=== PATIENT | male | born 1995 | race Caucasian/White ===

== ENCOUNTER 2018-07-23 18:21 | Emergency (ER) | payer MEDICAID, SELFPAY ==
[2018-07-23 18:27] VITALS: BP 152/81; PULSE 102; RESP 20; TEMP 36.5; O2SAT 98
--- NOTE | 2018-07-23 18:40 | NUR.NOTE ---
patient has #18 right ac, patient vomiting copious amounts of bile. MD examined patient Nursing Note:
[2018-07-23] MEDS: diphenhydrAMINE 50 MG/ML VIAL 25 MG IVP (18:50)
[2018-07-23] MEDS: Ondansetron 4 MG/2 ML VIAL IVP (18:51)
[2018-07-23] MEDS: Prochlorperazine 10 MG/2 ML VIAL IVP (18:51)
[2018-07-23 18:52] LABS: Abs Immature Grans 0.05 k/cumm (0.0-0.09); HCT 48.2 % (40.0-50.0); HGB 16.6 g/dL (13.5-17.5); Mean Corp. HGB Concentration 34.4 g/dL (32.0-36.0); Mean Corpuscular Hemoglobin 31.1 pg (27.0-33.0); Mean Corpuscular Volume 90.3 fL (80-95); Mean Platelet Volume 10.9 fL (8.0-11.0); Platelet Count 300 x1000/uL (130-400); RBC 5.34 m/cumm (4.50-6.00); RBC Distribution Width 13.3 % (11.8-14.1); White Blood Cell Count 16.48 k/cumm (4.4-10.8)
[2018-07-23] MEDS: Normal Saline 1,000 ML 1000 ML IV (18:53)
--- NOTE | 2018-07-23 18:59 | NUR.NOTE ---
patient examined by MD, patient medicated per MD order Nursing Note:
[2018-07-23 19:06] LABS: INR 1.1 (1.0-3.5); Prothrombin Time 10.4 sec (9.3-10.8)
[2018-07-23 19:09] LABS: ALT 22 U/L (12-78); AST 19 U/L (15-37); Albumin 4.6 g/dL (3.4-5.0); Alkaline Phosphatase 71 U/L (46-116); Anion Gap 15.4 mmol/L (3-11); BUN 15 mg/dL (7-18); CO2 24.6 mmol/L (21.0-32.0); CREATININE 0.88 mg/dL (0.70-1.30); Calcium 10.1 mg/dL (8.5-10.1); Chloride 101 mmol/L (98-107); Glucose 102 mg/dL (70-100); Potassium 3.7 mmol/L (3.5-5.1); Sodium 141 mmol/L (136-145); Total Protein 8.3 g/dL (6.4-8.2)
--- NOTE | 2018-07-23 19:21 | ED.GENADUL_ITS ---
Discharge Plan Disposition Patient Disposition: HOME Condition: Stable Discharge Details Chief Complaint: Headache Clinical Impression: Headache, Abnormal laboratory test Reason For Visit: severe head ache Primary Care Provider: Casey Hong ED Provider: Fina Arizmendi Home Meds and New Rx's Prescriptions: Continued bupropion HCl 150 MG tablet extended release 12 hr 150 mg PO DAILY RF: 0 hydroxyzine pamoate [Vistaril] 25 MG capsule 25 mg PO QID RF: 0 melatonin 3 MG tablet 3 mg PO HS RF: 0 Discharge Instructions Instructions: General Headache (ED) Additional Instructions: Please return immediately to the emergency department if you develop any new or worsening symptoms or if you become otherwise concerned. You did have some abnormal lab testing today as we discussed. It is extremely important that you call your primary care doctor to make an appointment to be seen in follow-up for this visit as soon as possible. Referrals: Casey Hong [Primary Care Provider] - Discharge Data Discharge Date/Time-TO BE ENTERED AT DEPARTURE: 07/23/18 20:00 Medical Decision Making Vern Romero is a 22-year-old man with history of anxiety, depression, and headaches in the past presenting to the emergency department with severe headache typical of his prior headaches, not the worst headache of his life. On exam patient is tearful, appears anxious. Nonfocal neuro exam. Per triage, patient without history of headaches, CT head and CT angio brain was ordered. After discussion with patient, Patient reporting that he has had prior head CTs and that he has had several headaches at least as severe as his headache today. Patient refusing imaging, no imaging indicated at this time. Screening labs ordered prior to full evaluation. Plan for IV Compazine, Benadryl, IV fluid hydration. Patient reporting symptoms have resolved completely after meds. Patient with leukocytosis and elevated anion gap, suspect secondary to vomiting and dehydration. Patient refuses further intervention at this time, including additional IV fluids and repeat BMP. Reports that he feels back to baseline and completely well and would like to go home. Patient believes that his headache is likely due to caffeine withdrawal, and reports that he has had many headaches in the past from caffeine withdrawal similar to this. I had a lengthy discussion with patient regarding return to emergency department precautions and importance of outpatient follow-up with his PCP. He verbalizes understanding of the plan. Medical Records Medical records reviewed: Yes I reviewed the patient's medical records. Lab Data Lab results reviewed: Yes I reviewed the patient's lab results. Laboratory Tests Range/Units 07/23/18 07/23/18 07/23/18 18:41 18:41 18:41 WBC (4.4-10.8) k/cumm 16.48 H RBC (4.50-6.00) m/cumm 5.34 Hgb (13.5-17.5) g/dL 16.6 Hct (40.0-50.0) % 48.2 MCV (80-95) fL 90.3 MCH (27.0-33.0) pg 31.1 MCHC (32.0-36.0) g/dL 34.4 RDW (11.8-14.1) % 13.3 Plt Count (130-400) x1000/uL 300 MPV (8.0-11.0) fL 10.9 Immature Gran % 0.0 Neutrophils % 70.0 Lymphocytes % 10.0 Monocytes % 9.0 Eosinophils % 1.0 Basophils % 0.0 Absolute Neutrophils (1.2-6.7) k/cumm 12.03 H Band Neutrophils % 3.0 Absolute Lymphocytes (1.2-3.4) k/cumm 2.80 Absolute Monocytes (0.11-0.7) k/cumm 1.48 H Absolute Eosinophils (0.0-0.7) k/cumm 0.16 Absolute Basophils (0.0-0.2) k/cumm 0.00 Differential Comment Manual differential Atypical Lymphocytes 7 RBC Morphology See below PT (9.3-10.8) sec 10.4 INR (1.0-3.5) 1.1 Sodium (136-145) mmol/L 141 Potassium (3.5-5.1) mmol/L 3.7 Chloride (98-107) mmol/L 101 Carbon Dioxide (21.0-32.0) mmol/L 24.6 Anion Gap (3-11) mmol/L 15.4 H BUN (7-18) mg/dL 15 Creatinine (0.70-1.30) mg/dL 0.88 Estimated GFR/1.73 m2 (mL/min/1.73m2) >= 60.00 Glucose (70-100) mg/dL 102 H Calcium (8.5-10.1) mg/dL 10.1 Total Bilirubin (0.2-1.0) mg/dL 1.0 AST (15-37) U/L 19 ALT (12-78) U/L 22 Alkaline Phosphatase (46-116) U/L 71 Total Protein (6.4-8.2) g/dL 8.3 H Albumin (3.4-5.0) g/dL 4.6 HPI General Mode of arrival: ambulatory . Date/Time Provider Initiated Documentation: 07/23/18 18:37 . Limitations to Documentation: no limitations . Information obtained by: patient, RN notes reviewed and old records reviewed . HPI Narrative: Vern Romero is a 22-year-old man with a history of anxiety, depression presenting to the emergency department with headache. Patient reports that at 4 PM he developed gradual onset headache. He went to bed, and when he woke up headache was more severe. Patient reports that his headache is causing him to feel very anxious. He reports pain is severe, located behind his eyes, and sharp in nature. Pain was not maximal at onset. Patient reports that he has had at least 5 headaches of similar location, quality, and severity in the past. He has had CT of his head here and at another hospital as well for emergent evaluation of these headaches. Patient reports that he had several episodes of vomiting since headache started. He has had vomiting with his prior similar headaches in the past. He denies any atypical or unusual symptoms/features of this headache compared to prior. Patient reports that he was previously in his usual state of health. No recent illnesses. No recent travel. Normal appetite. 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 Related Data Home Medications Medication Instructions Recorded Confirmed bupropion HCl 150 mg PO DAILY 12/07/15 10/12/16 hydroxyzine pamoate [Vistaril] 25 mg PO QID 12/07/15 10/12/16 melatonin 3 mg PO HS 10/12/16 10/12/16 Allergies Allergy/AdvReac Type Severity Reaction Status Date / Time No Known Allergies Allergy Unverified 12/07/15 09:29 General Stated Complaint: Headache LUCAS: 2 Review of Systems Review of Systems Constitutional: denies fevers Eyes: denies eye pain, denies visual changes ENT: denies facial pain, dental pain, sore throat Cardiovascular: denies chest pain Respiratory: denies SOB, cough GI: denies abdominal pain, diarrhea, reports vomiting : denies flank pain MSK: denies back pain, neck pain, arthralgias, myalgias Skin: denies rash Neuro: reports headache, denies lightheadedness, weakness, n/t PFSH Carpal tunnel syndrome Congenital pectus carinatum Depression Hearing problem Spontaneous pneumothorax Surgical History Opening of chest (07/05/14) Social History Smoking/Tobacco Use Status: Never Exam Narrative Exam Narrative: Constitutional: well and [id number], appears uncomfortable and anxious but o/w conversing normally HENT: head atraumatic, normocephalic normal inspection, mucous membranes moist Eyes: conjunctiva normal, sclera normal, pupils 3mm b/l RLA, EOMI Neck: no stridor, normal ROM, trachea midline Chest: normal inspection Resp: normal work of breathing, LCTAB Cardio: normal rate, normal rhythm, no murmur appreciated GI: abdomen soft, non-tender, non-distended Back: normal inspection, no rash Skin: warm, dry, normal color, no rash Neuro: alert, not altered, normal tone, machine quilt stuffer 2-12 intact, motor 5/5 throughout Ext: no edema Psych: anxious mood, normal affect, normal behavior Course Vital Signs Temperature 36.5 C 07/23/18 18:27 Pulse 102 H 07/23/18 18:27 Respiratory Rate 20 07/23/18 18:27 Blood Pressure 152/81 H 07/23/18 18:27 Pulse Oximetry 98 07/23/18 18:27 Temperature 36.5 C 07/23/18 18:27 Pulse 102 H 07/23/18 18:27 Respiratory Rate 20 18 18:27 Respiratory Effort 07/23/18 18:55 Blood Pressure 152/81 H 18 18:27 Blood Pressure Position Sitting 07/23/18 18:27 Pulse Oximetry 98 07/23/18 18:27 Oxygen Delivery Method Room Air 07/23/18 18:27 Oxygen Flow Rate 0 07/23/18 18:27 Lab/Test Results Lab/Test Results: Laboratory Tests Range/Units 07/23/18 07/23/18 18:41 18:41 WBC (4.4-10.8) k/cumm 16.48 H RBC (4.50-6.00) m/cumm 5.34 Hgb (13.5-17.5) g/dL 16.6 Hct (40.0-50.0) % 48.2 MCV (80-95) fL 90.3 MCH (27.0-33.0) pg 31.1 MCHC (32.0-36.0) g/dL 34.4 RDW (11.8-14.1) % 13.3 Plt Count (130-400) x1000/uL 300 MPV (8.0-11.0) fL 10.9 PT (9.3-10.8) sec 10.4 INR (1.0-3.5) 1.1
[2018-07-23 19:23] LABS: Absolute Neutrophil Count 12.03 k/cumm (1.2-6.7)
[2018-07-23 19:24] LABS: Absolute Eosinophil Count 0.16 k/cumm (0.0-0.7); Absolute Monocyte Count 1.48 k/cumm (0.11-0.7); Atypical Lymphocytes % 7
[2018-07-23 19:25] LABS: Diff Comment Manual Differential
[2018-07-23 19:33] VITALS: BP 109/52; PULSE 69; RESP 16; TEMP 36.9; O2SAT 94
== END 2018-07-23 20:00 | disposition home or self-care (01) ==
PROVIDERS: Emergency Provider Student in an Organized Health Care Education/Training Program; PCP Family Medicine
DX: R51 Headache (principal); F41.8 Other specified anxiety disorders; R11.2 Nausea with vomiting, unspecified; E87.2 Acidosis
CPT/HCPCS: 36415; 80053; 96361; 96374; 96375; 99284; 85025; 85610; J0780; J1200; J2405

== ENCOUNTER 2018-11-27 08:19 | Emergency (ER) | payer MEDICAID, SELFPAY ==
[2018-11-27 08:20] VITALS: BP 132/79; PULSE 79; RESP 18; TEMP 36.7; O2SAT 96
--- NOTE | 2018-11-27 08:37 | W.ED.GENAD ---
Discharge Plan Disposition Patient Disposition: HOME Condition: Stable Discharge Details Chief Complaint: Orthopedic Clinical Impression: Bilateral hip pain Primary Care Provider: Casey Hong ED Provider: Kade Abbasi Home Meds and New Rx's Prescriptions: No Action hydroxyzine pamoate [Vistaril] 25 MG capsule 50 mg PO QID RF: 0 Discharge Instructions Instructions: Arthritis (ED) Additional Instructions: follow up with your primary care provider within 1-2 weeks if you develop high fevers, severe worsening pain, or inability to urinate return to the emergency department you can take 1000mg tylenol and 600mg ibuprofen every 6 hours for pain as needed Stand Alone Forms: Work Release Medical Decision Making 23 yo male comes in with severeal months of bilateral hip pain, states he had xrays done in [place] and showed arthritis and has seen his pcp as well, missed an mri appointment a few weeks ago. 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 Pain is worse at the end of the day and denies systemic symptoms such as fever or weight loss so doubt cancer. No redness swelling or erythema of the joints, denies ivdu, doubt septic joint. He has full rom of the joints, no midline back pain or back pain at all, no saddle anesthesia, no weakness, doubt entities such as fx or dislocation or cauda equina. I suspect arthritis with increased pain due to working, will have him f/u withp cp and return precautions given Differential Diagnosis arthritis, djd HPI General Mode of arrival: ambulatory. Date/Time Provider Initiated Documentation: 11/27/18 08:36. Limitations to Documentation: no limitations. Information obtained by: patient. History of Present Illness 23 year old M presents to the emergency department with the chief complaint of bilateral hip pain, described as moderate, Quality is described as aching, Patient started experiencing this month(s) (3) and it has been constant. No relieving factors improve symptom(s), No exacerbating factors reported . Patient did receive the following treatments prior to arrival, none Related Data Home Medications Medication Instructions Recorded Confirmed hydroxyzine pamoate [Vistaril] 50 mg PO QID 12/07/15 11/27/18 Allergies Allergy/AdvReac Type Severity Reaction Status Date / Time No Known Allergies Allergy Unverified 11/27/18 08:24 General Stated Complaint: Orthopedic LUCAS: 4 Review of Systems Review of Systems All systems reviewed & are unremarkable except as noted in HPI and below Constitutional Denies chills, Denies fever(s) and Denies weakness Cardiovascular Denies chest pain and Denies dyspnea Respiratory Denies cough and Denies dyspnea Gastrointestinal Denies abdominal pain, Denies nausea and Denies vomiting Musculoskeletal Denies joint swelling Integumentary/Breasts Denies rash Neurologic Denies weakness [facility] Medical History Carpal tunnel syndrome Congenital pectus carinatum Depression Hearing problem Spontaneous pneumothorax Surgical History Opening of chest (07/05/14) Social History Smoking/Tobacco Use Status: Never Drug use: Daily Do you feel safe in your relationship?: Yes Exam Const General: no acute distress Orientation: alert HENMT Head: normal to inspection Ears: external ears normal General nose exam: external nose normal Mouth: moist mucous membranes Eyes General: appearance normal, both eyes and all related structures Neck Neck: normal visual inspection Resp Effort & Inspection: normal respiratory effort and able to speak in complete sentences Cardio Rate: regular rate Skin General skin exam: no rashes or lesions noted Neuro General: alert and oriented x3 Extrem General: normal to inspection Psych Mental Status: mental status grossly normal Course Vital Signs Temperature 36.7 C 11/27/18 08:20 Pulse 79 11/27/18 08:20 Respiratory Rate 18 11/27/18 08:20 Blood Pressure 132/79 11/27/18 08:20 Pulse Oximetry 96 11/27/18 08:20 Temperature 36.7 C 11/27/18 08:20 Temperature Source Skin 11/27/18 08:20 Pulse 79 11/27/18 08:20 Respiratory Rate 18 11/27/18 08:20 Blood Pressure 132/79 11/27/18 08:20 Pulse Oximetry 96 11/27/18 08:20 Oxygen Delivery Method Room Air 11/27/18 08:20 Oxygen Flow Rate 0 11/27/18 08:20 Pain Level 7 11/27/18 08:20
--- NOTE | 2018-11-27 08:47 | ED.GENADUL_ITS ---
Discharge Plan Disposition Patient Disposition: HOME Condition: Stable Discharge Details Chief Complaint: Orthopedic Clinical Impression: Bilateral hip pain Primary Care Provider: Casey Hong ED Provider: Kade Abbasi Home Meds and New Rx's Prescriptions: No Action hydroxyzine pamoate [Vistaril] 25 MG capsule 50 mg PO QID RF: 0 Discharge Instructions Instructions: Arthritis (ED) Additional Instructions: follow up with your primary care provider within 1-2 weeks if you develop high fevers, severe worsening pain, or inability to urinate return to the emergency department you can take 1000mg tylenol and 600mg ibuprofen every 6 hours for pain as needed Stand Alone Forms: Work Release Medical Decision Making 23 yo male comes in with severeal months of bilateral hip pain, states he had xrays done in [place] and showed arthritis and has seen his pcp as well, missed an mri appointment a few weeks ago. 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 Pain is worse at the end of the day and denies systemic symptoms such as fever or weight loss so doubt cancer. No redness swelling or erythema of the joints, denies ivdu, doubt septic joint. He has full rom of the joints, no midline back pain or back pain at all, no saddle anesthesia, no weakness, doubt entities such as fx or dislocation or cauda equina. I suspect arthritis with increased pain due to working, will have him f/u withp cp and return precautions given Differential Diagnosis arthritis, djd HPI General Mode of arrival: ambulatory . Date/Time Provider Initiated Documentation: 11/27/18 08:36 . Limitations to Documentation: no limitations . Information obtained by: patient . History of Present Illness 23 year old M presents to the emergency department with the chief complaint of bilateral hip pain, described as moderate, Quality is described as aching, Patient sta rted experiencing this month(s) (3) and it has been constant. No relieving factors improve symptom(s), No exacerbating factors reported . Patient did receive the following treatments prior to arrival, none Related Data Home Medications Medication Instructions Recorded Confirmed hydroxyzine pamoate [Vistaril] 50 mg PO QID 12/07/15 11/27/18 Allergies Allergy/AdvReac Type Severity Reaction Status Date / Time No Known Allergies Allergy Unverified 11/27/18 08:24 General Stated Complaint: Orthopedic LUCAS: 4 Review of Systems Review of Systems All systems reviewed & are unremarkable except as noted in HPI and below Constitutional Denies chills, Denies fever(s) and Denies weakness Cardiovascular Denies chest pain and Denies dyspnea Respiratory Denies cough and Denies dyspnea Gastrointestinal Denies abdominal pain, Denies nausea and Denies vomiting Musculoskeletal Denies joint swelling Integumentary/Breasts Denies rash Neurologic Denies weakness PFSH Medical History Carpal tunnel syndrome Congenital pectus carinatum Depression Hearing problem Spontaneous pneumothorax Surgical History Opening of chest (07/05/14) Social History Smoking/Tobacco Use Status: Never Drug use: Daily Do you feel safe in your relationship?: Yes Exam Const General: no acute distress Orientation: alert HENMT Head: normal to inspection Ears: external ears normal General nose exam: external nose normal Mouth: moist mucous membranes Eyes General: appearance normal, both eyes and all related structures Neck Neck: normal visual inspection Resp Effort & Inspection: normal respiratory effort and able to speak in complete sentences Cardio Rate: regular rate Skin General skin exam: no rashes or lesions noted Neuro General: alert and oriented x3 Extrem General: normal to inspection Psych Mental Status: mental status grossly normal Course Vital Signs Temperature 36.7 C 11/27/18 08:20 Pulse 79 11/27/18 08:20 Respiratory Rate 18 11/27/18 08:20 Blood Pressure 132/79 11/27/18 08:20 Pulse Oximetry 96 11/27/18 08:20 Temperature 36.7 C 11/27/18 08:20 Temperature Source Skin 11/27/18 08:20 Pulse 79 11/27/18 08:20 Respiratory Rate 18 11/27/18 08:20 Blood Pressure 132/79 11/27/18 08:20 Pulse Oximetry 96 11/27/18 08:20 Oxygen Delivery Method Room Air 11/27/18 08:20 Oxygen Flow Rate 0 11/27/18 08:20 Pain Level 7 11/27/18 08:20
== END 2018-11-27 08:45 | disposition home or self-care (01) ==
PROVIDERS: Emergency Provider Emergency Medicine; PCP Family Medicine
DX: M25.551 Pain in right hip (principal); M25.552 Pain in left hip
CPT/HCPCS: 99283

== ENCOUNTER 2018-12-11 19:43 | Emergency (ER) | payer MEDICAID, SELFPAY ==
[2018-12-11 19:46] VITALS: BP 113/72; PULSE 108; RESP 18; TEMP 36.4; O2SAT 96
--- NOTE | 2018-12-11 19:58 | W.ED.GENAD ---
Discharge Plan Disposition Patient Disposition: HOME Condition: Good Discharge Details Chief Complaint: Orthopedic Clinical Impression: Bilateral hip pain Primary Care Provider: Casey Hong ED Provider: Ulises Hobson [place] Meds and New Rx's Prescriptions: Continued hydroxyzine pamoate [Vistaril] 25 MG capsule 50 mg PO QID RF: 0 diclofenac sodium 75 mg Tablet,Delayed Release (Dr/Ec) 75 mg PO BID RF: 0 Discharge Instructions Additional Instructions: Start your new prescription in the morning. Follow up with PCP and orthopedics. Return to ED if there are new symptoms that occur that are worrisome like back pain, true weakness, loss of bladder or bowel control, fever, abdominal pain. Referrals: Casey Hong [Primary Care Provider] - Medical Decision Making Patient with continued/worsening pain in bilateral hips. Continues to have no back pain or abdominal pain, no neurological changes other then pain/tingling shooting down legs. Has had x-rays and has been seen/followed by PCP and orthopedics. Has new prescription to try. Asked patient what his expectations to this visit were. He said none, just doesn't want to be in pain. Explained that chronic pain must be managed by PCP and that evaluation and management of chronic problems in ED not warranted unless new changes/symptoms. This is just a gradual worsening of chronic problem being followed as outpatient. His neuro exam is normal. His distal pulses are in tact. He has no tenderness or swelling, does have pain with ROM. Offered shot of Toradol and then will have him start his new prescription in the morning. Medical Records Medical records reviewed: Yes I reviewed the patient's medical records. HPI General Mode of arrival: ambulatory. Date/Time Provider Initiated Documentation: 12/11/18 19:48. Limitations to Documentation: no limitations. Information obtained by: patient, RN notes reviewed and old records reviewed. HPI Narrative: Patient presents to ED with complaint of worsening bilateral hip pain. Has had now for months probably. Is followed by PCP and by [facility]. Was given new prescription for diclofenac to try. Has not taken yet. Comes to ED complaining of worsening pain that he can't stand. Denies new injury or changes otherwise. Has difficulty ambulating due to pain not weakness. Denies fever, chills, skin changes, back pain, abdominal pain, weakness, numbness, bladder or bowel problems. Pain now starting to shoot down his legs. Pain seems to be deep in groin bilaterally. Related Data Home Medications Medication Instructions Recorded Confirmed hydroxyzine pamoate [Vistaril] 50 mg PO QID 12/07/15 12/11/18 diclofenac sodium 75 mg PO BID 12/11/18 12/11/18 Allergies Allergy/AdvReac Type Severity Reaction Status Date / Time No Known Allergies Allergy Unverified 12/11/18 19:49 General Stated Complaint: Orthopedic LUCAS: 4 Review of Systems Constitutional Denies chills, Denies fever(s) and Denies weakness Musculoskeletal Denies back pain, Denies myalgias, Reports arthralgias, Denies joint swelling, Denies numbness and Reports tingling Integumentary/Breasts Denies erythema and Denies rash Neurologic Denies focal weakness, Denies numbness, Denies sensory deficit, Reports tingling, Denies paresthesias and Denies weakness [facility] Medical History Femoral acetabular impingement (Acute) Carpal tunnel syndrome Congenital pectus carinatum Depression Hearing problem Spontaneous pneumothorax Surgical History Opening of chest (07/05/14) Social History Smoking/Tobacco Use Status: Current every day Tobacco Type: cigarettes Alcohol Intake: current Alcohol Intake frequency: a few times a week Drug use: Daily Substance use type: does not use Do you feel safe at home: Yes Do you feel safe in your relationship?: Yes Exam Const General: cooperative, comfortable and no acute distress Orientation: alert and oriented x3 Cardio Pulses: normal peripheral pulses Back/Spine/Pelvis Thoracic/Lumbar Spine: thoracic and lumbar spine normal to inspection, thoraco-lumbar ROM normal, No paraspinal tenderness, No thoracic spinal tenderness and No lumbar spinal tenderness Pelvis: no pain with anterior-posterior compression and no pain with lateral compression Skin General skin exam: no erythema Rashes: no rashes Neuro General: alert, oriented x3, tone normal, moves all extremities and no focal motor deficits Sensory Exam: no sensory deficits noted Extrem Right lower extremity: normal to inspection and hip/thigh Details: normal to inspection and abnormal ROM Details: pain with active ROM during; no tenderness Left lower extremity: normal to inspection and hip/thigh Details: normal to inspection and abnormal ROM Details: pain with active ROM; no tenderness Course Vital Signs Temperature 97.5 F L 12/11/18 19:46 Pulse 108 H 12/11/18 19:46 Respiratory Rate 18 12/11/18 19:46 Blood Pressure 113/72 12/11/18 19:46 Pulse Oximetry 96 12/11/18 19:46 Temperature 97.5 F L 12/11/18 19:46 Temperature Source Skin 12/11/18 19:46 Pulse 108 H 12/11/18 19:46 Respiratory Rate 18 12/11/18 19:46 Respiratory Effort Non-Labored 12/11/18 19:51 Blood Pressure 113/72 12/11/18 19:46 Pulse Oximetry 96 12/11/18 19:46 Pain Level 8 12/11/18 19:46
[2018-12-11] MEDS: Ketorolac 60 MG/2 ML VIAL IM (20:13)
--- NOTE | 2018-12-11 20:20 | ED.GENADUL_ITS ---
Discharge Plan Disposition Patient Disposition: HOME Condition: Good Discharge Details Chief Complaint: Orthopedic Clinical Impression: Bilateral hip pain Primary Care Provider: Casey Hong ED Provider: Ulises Hobson [place] Meds and New Rx's Prescriptions: Continued hydroxyzine pamoate [Vistaril] 25 MG capsule 50 mg PO QID RF: 0 diclofenac sodium 75 mg Tablet,Delayed Release (Dr/Ec) 75 mg PO BID RF: 0 Discharge Instructions Additional Instructions: Start your new prescription in the morning. Follow up with PCP and orthopedics. Return to ED if there are new symptoms that occur that are worrisome like back pain, true weakness, loss of bladder or bowel control, fever, abdominal pain. Referrals: Casey Hong [Primary Care Provider] - Medical Decision Making Patient with continued/worsening pain in bilateral hips. Continues to have no back pain or abdominal pain, no neurological changes other then pain/tingling shooting down legs. Has had x-rays and has been seen/followed by PCP and orthopedics. Has new prescription to try. Asked patient what his expectations to this visit were. He said none, just doesn't want to be in pain. Explained that chronic pain must be managed by PCP and that evaluation and management of chronic problems in ED not warranted unless new changes/symptoms. This is just a gradual worsening of chronic problem being followed as outpatient. His neuro exam is normal. His distal pulses are in tact. He has no tenderness or swelling, does have pain with ROM. Offered shot of Toradol and then will have him start his new prescription in the morning. Medical Records Medical records reviewed: Yes I reviewed the patient's medical records. HPI General Mode of arrival: ambulatory . Date/Time Provider Initiated Documentation: 12/11/18 19:48 . Limitations to Documentation: no limitations . Information obtained by: patient, RN notes reviewed and old records reviewed . HPI Narrative: Patient presents to ED with complaint of worsening bilateral hip pain. Has had now for months probably. Is followed by PCP and by [facility]. Was given new prescription for diclofenac to try. Has not taken yet. Comes to ED complaining of worsening pain that he can't stand. Denies new injury or changes otherwise. Has difficulty ambulating due to pain not weakness. Denies fever, chills, skin changes, back pain, abdominal pain, weakness, numbness, bladder or bowel problems. Pain now starting to shoot down his legs. Pain seems to be deep in groin bilaterally. Related Data Home Medications Medication Instructions Recorded Confirmed hydroxyzine pamoate [Vistaril] 50 mg PO QID 12/07/15 12/11/18 diclofenac sodium 75 mg PO BID 12/11/18 12/11/18 Allergies Allergy/AdvReac Type Severity Reaction Status Date / Time No Known Allergies Allergy Unverified 12/11/18 19:49 General Stated Complaint: Orthopedic LUCAS: 4 Review of Systems Constitutional Denies chills, Denies fever(s) and Denies weakness Musculoskeletal Denies back pain, Denies myalgias, Reports arthralgias, Denies joint swelling, Denies numbness and Reports tingling Integumentary/Breasts Denies erythema and Denies rash Neurologic Denies focal weakness, Denies numbness, Denies sensory deficit, Reports tingling, Denies paresthesias and Denies weakness [facility] Medical History Femoral acetabular impingement (Acute) Carpal tunnel syndrome Congenital pectus carinatum Depression Hearing problem Spontaneous pneumothorax Surgical History Opening of chest (07/05/14) Social History Smoking/Tobacco Use Status: Current every day Tobacco Type: cigarettes Alcohol Intake: current Alcohol Intake frequency: a few times a week Drug use: Daily Substance use type: does not use Do you feel safe at home: Yes Do you feel safe in your relationship?: Yes Exam Const General: cooperative, comfortable and no acute distress Orientation: alert and oriented x3 Cardio Pulses: normal peripheral pulses Back/Spine/Pelvis Thoracic/Lumbar Spine: thoracic and lumbar spine normal to inspection, thoraco- lumbar ROM normal, No paraspinal tenderness, No thoracic spinal tenderness and No lumbar spinal tenderness Pelvis: no pain with anterior-posterior compression and no pain with lateral compression Skin General skin exam: no erythema Rashes: no rashes Neuro General: alert, oriented x3, tone normal, moves all extremities and no focal motor deficits Sensory Exam: no sensory deficits noted Extrem Right lower extremity: normal to inspection and hip/thigh Details: normal to inspection and abnormal ROM Details: pain with active ROM during; no tenderness Left lower extremity: normal to inspection and hip/thigh Details: normal to inspection and abnormal ROM Details: pain with active ROM; no tenderness Course Vital Signs Temperature 97.5 F L 12/11/18 19:46 Pulse 108 H 12/11/18 19:46 Respiratory Rate 18 12/11/18 19:46 Blood Pressure 113/72 12/11/18 19:46 Pulse Oximetry 96 12/11/18 19:46 Temperature 97.5 F L 12/11/18 19:46 Temperature Source Skin 12/11/18 19:46 Pulse 108 H 12/11/18 19:46 Respiratory Rate 18 12/11/18 19:46 Respiratory Effort Non-Labored 12/11/18 19:51 Blood Pressure 113/72 12/11/18 19:46 Pulse Oximetry 96 12/11/18 19:46 Pain Level 8 12/11/18 19:46
== END 2018-12-11 20:34 | disposition home or self-care (01) ==
PROVIDERS: Emergency Provider Emergency Medicine; PCP Family Medicine
DX: M25.551 Pain in right hip (principal); M25.552 Pain in left hip; G89.29 Other chronic pain
CPT/HCPCS: 96372; 99284; J1885

== ENCOUNTER 2019-01-01 01:17 | Outpatient (CLI) | payer MEDICAID, SELFPAY ==
--- NOTE | 2019-01-01 10:47 | DI.MRI_ITS ---
SYMPTOMS/DIAGNOSIS: FEMOROACETABULAR IMPINGEMENT, M25.859, BILATERAL CHRONIC HIP PAIN X 1-1/2 YEARS, NO KNOWN INJURY MRI OF THE PELVIS AND BOTH HIPS: Comparison is made with plain films dated July, from [facility]. T1 and fat-suppressed T2 axial, T1 and STIR coronal sequences were performed of both hips. Fat-suppressed proton density coronal and T2 sagittal sequences were performed of each hip. The marrow signal is normal. There are no hip joint effusions. No tendon abnormalities are seen. There are no gross labral defects. There is a small bump bilaterally seen at the lateral superior margin of both femoral heads. The bladder and prostate are unremarkable. No abnormality of the SI joints is seen. IMPRESSION: Small excrescences of the lateral superior margins of the femoral heads, but no abnormal signal or subchondral cysts in the femoral head or adjacent acetabulum. There are no gross cartilage or labral defects.
--- NOTE | 2019-01-01 15:24 | DI.VRAD_ITS ---
EXAM: MR Right Lower Extremity Without Contrast. Hip MR Left Lower Extremity Without Contrast. Hip EXAM DATE/TIME: 01/01/2019 10:45 AM CLINICAL HISTORY: 23 years old, male; Patient HX: Bilateral chronic hip pain x1 1/2 years, no known injury, no surgery. TECHNIQUE: Imaging protocol: MR of the Right lower extremity without intravenous contrast. Exam focused on the hip. Imaging protocol: MR of the Left lower extremity without intravenous contrast. Exam focused on the hip. COMPARISON: No relevant prior studies available. FINDINGS: The hip joints are normally aligned. The femoral head articular contours are maintained, and there is no subchondral marrow signal change to suggest avascular necrosis. There is no significant hip joint effusion. The articular cartilage of both hips appears intact. No gross tear of either acetabular labrum is identified. The bones of the remaining pelvis are normal in signal. The partially included sacroiliac joints and pubic symphysis appear patent. No gross lower lumbar abnormality is evident. The bilateral greater and lesser trochanteric tendon insertions are intact. There is very mild right and mild left hamstring tendinopathy. The visualized musculature and subcutaneous soft tissues appear unremarkable. The visualized intrapelvic structures appear unremarkable. IMPRESSION: Very mild right and mild left hamstrings tendinopathy. Dictated and Authenticated by: Kade Joseph MD. Ordering:YG Prasad MD
== END 2019-01-01 01:37 ==
PROVIDERS: PCP Family Medicine; Visit Provider Orthopaedic Surgery
DX: M25.551 Pain in right hip (principal); M25.552 Pain in left hip; M25.851 Other specified joint disorders, right hip; M25.852 Other specified joint disorders, left hip
CPT/HCPCS: 73721

== ENCOUNTER 2019-01-26 16:21 | Emergency (ER) | payer MEDICAID, SELFPAY ==
[2019-01-26 16:24] VITALS: BP 134/78; PULSE 84; RESP 14; TEMP 36.9; O2SAT 99
--- NOTE | 2019-01-26 16:45 | W.ED.GENAD ---
Discharge Plan Disposition Patient Disposition: HOME Discharge Details Chief Complaint: Orthopedic Clinical Impression: Femoral acetabular impingement Primary Care Provider: Casey Hong ED Provider: Mario Arizmendi Home Meds and New Rx's Prescriptions: Continued hydroxyzine pamoate [Vistaril] 25 MG capsule 50 mg PO QID RF: 0 diclofenac sodium 75 mg Tablet,Delayed Release (Dr/Ec) 75 mg PO BID RF: 0 Discharge Instructions Additional Instructions: Please call your automotive parts specialist to arrange timely follow-up. Please contact your primary care physician to arrange follow-up. Return to the ER for any worsening or new concerning symptoms. Referrals: Casey Hong [Primary Care Provider] - Medical Decision Making 23-year-old male with femoral acetabular impingement syndrome bilaterally, followed by orthopedics was planned for surgical intervention scheduled for March 18 here today with persistent bilateral hip pain over the past few weeks that is refractory to diclofenac. No inflammatory changes of her bilateral hips. He does have pain with external and internal rotation of the hips. Plan to treat with Toradol 30 mg IM. Patient was instructed to not take his diclofenac tonight and can restart tomorrow. Plan is to have the patient follow-up with his automotive parts specialist. I encouraged him to call today to arrange timely follow-up. HPI General Mode of arrival: ambulatory. Date/Time Provider Initiated Documentation: 01/26/19 16:24. Limitations to Documentation: no limitations. Information obtained by: patient. HPI Narrative: 23-year-old male with femoral acetabular impingement syndrome, followed by [facility] orthopedic surgery with plan for surgical intervention March 18, 2019, here today with persistent bilateral hip pain. Patient notes he was started on diclofenac and has been taking this as prescribed for the past 2 weeks without much relief. He notes the only thing that really helps his pain is smoking marijuana. He has tried ibuprofen and Aleve in the past. Patient denies associated fever. Related Data Home Medications Medication Instructions Recorded Confirmed hydroxyzine pamoate [Vistaril] 50 mg PO QID 12/07/15 01/26/19 diclofenac sodium 75 mg PO BID 12/11/18 01/26/19 Allergies Allergy/AdvReac Type Severity Reaction Status Date / Time No Known Allergies Allergy Unverified 01/26/19 16:29 General Stated Complaint: Orthopedic LUCAS: 3 Review of Systems Constitutional Denies fever(s) Musculoskeletal Reports as per HPI [facility] Medical History Femoral acetabular impingement (Acute) Carpal tunnel syndrome Congenital pectus carinatum Depression Hearing problem Spontaneous pneumothorax Surgical History Opening of chest (07/05/14) Social History Smoking/Tobacco Use Status: Former Tobacco Use Alcohol Intake: current Alcohol Intake frequency: a few times a week Drug use: Daily Substance use type: marijuana Do you feel safe at home: Yes Do you feel safe in your relationship?: Yes Exam Const General: cooperative and no acute distress HENMT Mouth: moist mucous membranes Eyes Conjunctivae: normal conjunctivae Neck Neck: trachea midline Resp Auscultation: clear to auscultation bilaterally, no rales, no rhonchi and no wheezes Cardio Jugular venous pressure: no JVD Rate: regular rate and not tachycardic Rhythm: regular rhythm Skin General skin exam: no rashes or lesions noted Neuro General: alert, awake and tone normal Sensory Exam: no sensory deficits noted (Bilateral lower extremities) Extrem General: no edema Right lower extremity: hip/thigh Details: abnormal ROM Details: pain with passive ROM during Details: to internal rotation and to external rotation; no swelling, no deformity and no unusual warmth Left lower extremity: hip/thigh Details: abnormal ROM Details: pain with passive ROM Details: with internal rotation and with external rotation; no swelling, no deformity and no unusual warmth Course Vital Signs Temperature 36.9 C 01/26/19 16:24 Pulse 84 01/26/19 16:24 Respiratory Rate 14 01/26/19 16:24 Blood Pressure 134/78 01/26/19 16:24 Pulse Oximetry 99 01/26/19 16:24 Temperature 36.9 C 01/26/19 16:24 Temperature Source Skin 01/26/19 16:24 Pulse 84 01/26/19 16:24 Respiratory Rate 14 01/26/19 16:24 Respiratory Effort 01/26/19 16:30 Blood Pressure 134/78 01/26/19 16:24 Blood Pressure Position Sitting 01/26/19 16:24 Pulse Oximetry 99 01/26/19 16:24 Pain Level 8 01/26/19 16:24
--- NOTE | 2019-01-26 16:48 | ED.GENADUL_ITS ---
Discharge Plan Disposition Patient Disposition: HOME Discharge Details Chief Complaint: Orthopedic Clinical Impression: Femoral acetabular impingement Primary Care Provider: Casey Hong ED Provider: Mario Arizmendi Home Meds and New Rx's Prescriptions: Continued hydroxyzine pamoate [Vistaril] 25 MG capsule 50 mg PO QID RF: 0 diclofenac sodium 75 mg Tablet,Delayed Release (Dr/Ec) 75 mg PO BID RF: 0 Discharge Instructions Additional Instructions: Please call your beef cattle specialist to arrange timely follow-up. Please contact your primary care physician to arrange follow-up. Return to the ER for any worsening or new concerning symptoms. Referrals: Casey Hong [Primary Care Provider] - Medical Decision Making 23-year-old male with femoral acetabular impingement syndrome bilaterally, followed by orthopedics was planned for surgical intervention scheduled for March 18 here today with persistent bilateral hip pain over the past few weeks that is refractory to diclofenac. No inflammatory changes of her bilateral hips. He does have pain with external and internal rotation of the hips. Plan to treat with Toradol 30 mg IM. Patient was instructed to not take his diclofenac tonight and can restart tomorrow. Plan is to have the patient follow-up with his beef cattle specialist. I encouraged him to call today to arrange timely follow-up. HPI General Mode of arrival: ambulatory . Date/Time Provider Initiated Documentation: 01/26/19 16:24 . Limitations to Documentation: no limitations . Information obtained by: patient . HPI Narrative: 23-year-old male with femoral acetabular impingement syndrome, followed by [facility] orthopedic surgery with plan for surgical intervention March 18, 2019, here today with persistent bilateral hip pain. Patient notes he was started on diclofenac and has been taking this as prescribed for the past 2 weeks without much relief. He notes the only thing that really helps his pain is smoking marijuana. He has tried ibuprofen and Aleve in the past. Patient denies associated fever. Related Data Home Medications Medication Instructions Recorded Confirmed hydroxyzine pamoate [Vistaril] 50 mg PO QID 12/07/15 01/26/19 diclofenac sodium 75 mg PO BID 12/11/18 01/26/19 Allergies Allergy/AdvReac Type Severity Reaction Status Date / Time No Known Allergies Allergy Unverified 01/26/19 16:29 General Stated Complaint: Orthopedic LUCAS: 3 Review of Systems Constitutional Denies fever(s) Musculoskeletal Reports as per HPI [facility] Medical History Femoral acetabular impingement (Acute) Carpal tunnel syndrome Congenital pectus carinatum Depression Hearing problem Spontaneous pneumothorax Surgical History Opening of chest (07/05/14) Social History Smoking/Tobacco Use Status: Former Tobacco Use Alcohol Intake: current Alcohol Intake frequency: a few times a week Drug use: Daily Substance use type: marijuana Do you feel safe at home: Yes Do you feel safe in your relationship?: Yes Exam Const General: cooperative and no acute distress HENMT Mouth: moist mucous membranes Eyes Conjunctivae: normal conjunctivae Neck Neck: trachea midline Resp Auscultation: clear to auscultation bilaterally, no rales, no rhonchi and no wheezes Cardio Jugular venous pressure: no JVD Rate: regular rate and not tachycardic Rhythm: regular rhythm Skin General skin exam: no rashes or lesions noted Neuro General: alert, awake and tone normal Sensory Exam: no sensory deficits noted (Bilateral lower extremities) Extrem General: no edema Right lower extremity: hip/thigh Details: abnormal ROM Details: pain with passive ROM during Details: to internal rotation and to external rotation; no swelling, no deformity and no unusual warmth Left lower extremity: hip/thigh Details: abnormal ROM Details: pain with passive ROM Details: with internal rotation and with external rotation; no swelling, no deformity and no unusual warmth Course Vital Signs Temperature 36.9 C 01/26/19 16:24 Pulse 84 01/26/19 16:24 Respiratory Rate 14 01/26/19 16:24 Blood Pressure 134/78 01/26/19 16:24 Pulse Oximetry 99 01/26/19 16:24 Temperature 36.9 C 01/26/19 16:24 Temperature Source Skin 01/26/19 16:24 Pulse 84 01/26/19 16:24 Respiratory Rate 14 01/26/19 16:24 Respiratory Effort 01/26/19 16:30 Blood Pressure 134/78 01/26/19 16:24 Blood Pressure Position Sitting 01/26/19 16:24 Pulse Oximetry 99 01/26/19 16:24 Pain Level 8 01/26/19 16:24
[2019-01-26] MEDS: Ketorolac 30 MG/ML VIAL (17:11)
[2019-01-26] MEDS: Ketorolac 30 MG/ML VIAL IM (17:11)
--- NOTE | 2019-01-26 17:16 | NUR.NOTE ---
pt medicated as per mdo Nursing Note:
== END 2019-01-26 17:51 | disposition home or self-care (01) ==
PROVIDERS: Emergency Provider Student in an Organized Health Care Education/Training Program; PCP Family Medicine
DX: M24.851 Other specific joint derangements of right hip, not elsewhere classified (principal); M24.852 Other specific joint derangements of left hip, not elsewhere classified
CPT/HCPCS: 96372; 99284; J1885

== ENCOUNTER 2019-03-02 00:24 | Emergency (ER) | payer MEDICAID, SELFPAY ==
[2019-03-02 00:27] VITALS: BP 134/94; PULSE 86; RESP 16; TEMP 36.5; O2SAT 97
--- NOTE | 2019-03-02 00:39 | ED.GENADUL_ITS ---
Discharge Plan Disposition Patient Disposition: HOME Condition: Good Discharge Details Chief Complaint: Headache Clinical Impression: Neck pain on left side, Muscle spasm Primary Care Provider: Casey Hong ED Provider: Tommy Lowery Home Meds and New Rx's Prescriptions: New cyclobenzaprine 10 mg tablet 10 mg PO TID Qty: 14 RF: 0 acetaminophen [Mapap Extra Strength] 500 MG tablet 1,000 mg PO Q6H 5 Days Qty: 60 RF: 0 lidocaine [Lidoderm] 1 PATCH patch 1 patch Topical Q24H Qty: 4 RF: 0 ibuprofen [Motrin IB] 200 MG tablet 600 mg PO Q6H 5 Days Qty: 60 RF: 0 No Action hydroxyzine pamoate [Vistaril] 25 MG capsule 50 mg PO QID RF: 0 Discharge Instructions Instructions: Muscle Spasm (ED), Neck Pain (ED) Additional Instructions: At this time your exam shows that you have a notable muscle spasm in your left neck. I believe this is causing a tension headache at this time. Please use a heating pad often, Flexeril as directed, maximum dose Tylenol and Motrin, and the Lidoderm patches. If you notice any worsening of your symptoms, or any new symptoms such as vomiting, diarrhea, fever, chills, shortness of breath, chest pain, numbness, weakness, or fainting , please return immediately to the emergency department for reevaluation. Please follow up with your primary care provider as soon as possible for reassessment and reevaluation. As always, it was a pleasure participating in your medical care today. Referrals: Casey Hong [Primary Care Provider] - Medical Decision Making This is a 23-year-old male who presents today for evaluation of left- sided neck pain. Is been gradual in onset started today. It is over the distribution of the trapezius muscle left neck. Is a mild associated headache with this as well. He denies any concerning red flags for this headache with no fever, not worst headache of his life, no IV or illicit drug use or trauma. Exam demonstrates notably reassuring vital signs, no clinical evidence of meningitis. Signs and symptoms at this time are clinically consistent with a trapezius muscle spasm and subsequent tension headache. With the pain being unilateral, no meningeal signs, no nuchal rigidity, and symptoms improved with massage, his symptoms appear inconsistent with infection. A suboccipital cervical block was placed for his left neck at the point of maximal pain and after this the patient had near complete resolution of his symptoms. Patient will be discharged home with diagnosis of tension headache, muscle spasm. Recommend NSAIDs, heating pad, Lidoderm patch, and Flexeril as needed. I have extensively reviewed the treatment plan and discharge instructions with the patient and their family. I have addressed all patient concerns at this time. T he patient and family was made aware of what symptoms to monitor for that would warrant a return to the emergency department. Discussed the plan with the patient and family, they demonstrate verbal understanding and agreement with our assessment and plan at this time. Procedure note: Suboccipital block The point of maximal pain was located at the left neck, the area was cleaned with copious scrubbing with alcohol swab. A 50-50 mixture of 0.5% bupivacaine and 2% lidocaine without epinephrine was used and a total of 8 cc of this mixture was injected into that area. No blood loss. After procedure patient had complete resolution of pain. HPI General Date/Time Provider Initiated Documentation: 03/02/19 00:25 . HPI Narrative: This is a 23-year-old male with a past medical history of carpal tunnel, congenital pectus carinatum, femoral acetabular impingement syndrome, who presents today for evaluation of left neck pain. Patient states that he woke up today and is mildly achy. Ross slightly tight, it is only present on the left side of his neck. He did take ibuprofen earlier today, and had no significant improvement. The pain does radiate to his left shoulder in the distribution of the trapezius muscle. He does have a very mild headache which she states comes from the back of the neck and travels upwards. He denies any numbness tingling or weakness. He denies any recent trauma. He states when he was at home earlier today he did have a panic attack but this resolved on its own. He states that this is fairly normal for him. The patient did have his significant other massage the neck and also did stretching exercises which notably improved his symptoms. However they did gradually come back. Patient denies any other complaints at this time. He denies fever, chills, vision change, nausea, vomiting, diarrhea, recent infection, URI-like symptoms, or other complaints no other modifying factors. No history of IV or illicit drug use. The patient denies any headache red flags of worst headache of life, thunderclap headache, neck pain, fever, chills, concerning family history of polycystic kidney disease, Marfan syndrome, Peyton-Danlos syndrome, abdominal aortic aneurysm, aortic dissection, or intracranial aneurysm. Related Data Home Medications Medication Instructions Recorded Confirmed hydroxyzine pamoate [Vistaril] 50 mg PO QID 12/07/15 03/02/19 acetaminophen [Mapap Extra 1,000 mg PO Q6H 5 Days #60 tab 03/02/19 Strength] cyclobenzaprine 10 mg PO TID #14 tab 03/02/19 ibuprofen [Motrin Ib] 600 mg PO Q6H 5 Days #60 tab 03/02/19 lidocaine [Lidoderm] 1 patch TOPICAL Q24H #4 patch 03/02/19 Previous Rx's Medication Instructions Recorded acetaminophen [Mapap Extra 1,000 mg PO Q6H 5 Days #60 tab 03/02/19 Strength] cyclobenzaprine 10 mg PO TID #14 tab 03/02/19 ibuprofen [Motrin Ib] 600 mg PO Q6H 5 Days #60 tab 03/02/19 lidocaine [Lidoderm] 1 patch TOPICAL Q24H #4 patch 03/02/19 Allergies Allergy/AdvReac Type Severity Reaction Status Date / Time No Known Allergies Allergy Unverified 03/02/19 00:31 General Stated Complaint: Headache LUCAS: 4 Review of Systems Review of Systems All systems reviewed & are unremarkable except as noted in HPI and below PFSH Social History Smoking/Tobacco Use Status: Former Tobacco Use Alcohol Intake: current Alcohol Intake frequency: a few times a week Drug use: Daily Substance use type: marijuana Do you feel safe at home: Yes Do you feel safe in your relationship?: Yes Exam Narrative Exam Narrative: 1.Const: Well-nourished, Well-developed, appearing stated age 2.Eyes: PERRL, no conjunctival injection, and symmetrical lids. 3.ENT: Atraumatic external nose and ears. Moist MM. Neck: Symmetric, trachea midline, No thyromegaly. Ears demonstrate no evidence of otitis media or externa. 4.CVS: +S1/S2, No murmurs or gallops. Peripheral pulses 2+ and equal in all extremities. Brisk capillary refill in all extremities. 5.RESP: Unlabored respiratory effort. Clear to auscultation bilaterally. No wheezes rales or rhonchi 6.GI: Soft, Nontender/Nondistended, No hepatosplenomegaly. No guarding or rebound. 7.MSK: Normocephalic/Atraumatic, Extremities w/o deformity or ttp No cyanosis or clubbing, Normal movement of all extremities patient demonstrates good movement of cervical neck. There is no nuchal rigidity, no nuchal tenderness. Patient is able to flex the neck without any difficulty or significant pain. Negative Kernig's and Brudzinski sign. Notable muscle spasm over trapezius on the left, normal muscle tissue on the right. Mild reproducible achiness on palpation of the left neck, no tenderness on the right neck. 8.Skin: Warm, Dry. No rashes or lesions. 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 Sensation grossly intact, no focal neurologic deficits. 10.Psych: (AAO) x3. Appropriate mood and affect Course Vital Signs Temperature 36.5 C 03/02/19 00:27 Pulse 86 03/02/19 00:27 Respiratory Rate 16 03/02/19 00:27 Blood Pressure 134/94 H 03/02/19 00:27 Pulse Oximetry 97 03/02/19 00:27 Temperature 36.5 C 03/02/19 00:27 Temperature Source Skin 03/02/19 00:27 Pulse 86 03/02/19 00:27 Respiratory Rate 16 03/02/19 00:27 Respiratory Effort Non-Labored 03/02/19 00:30 Blood Pressure 134/94 H 03/02/19 00:27 Blood Pressure Position Sitting 03/02/19 00:27 Pulse Oximetry 97 03/02/19 00:27 Oxygen Delivery Method Room Air 03/02/19 00:27 Oxygen Flow Rate 0 03/02/19 00:27 Pain Level 8 03/02/19 00:27
[2019-03-02] MEDS: Ketorolac 30 MG/ML VIAL IM (00:48)
[2019-03-02] MEDS: Lidocaine 5% Patch 1 PATCH TP (00:49)
== END 2019-03-02 00:53 | disposition home or self-care (01) ==
LOC: ER 00:48
PROVIDERS: Emergency Provider Student in an Organized Health Care Education/Training Program; PCP Family Medicine
DX: M54.2 Cervicalgia (principal); M62.838 Other muscle spasm; G44.209 Tension-type headache, unspecified, not intractable
CPT/HCPCS: 64405; 96372; 99284; J1885

== ENCOUNTER 2019-05-24 18:44 | Emergency (ER) | payer MEDICAID, SELFPAY ==
[2019-05-24 18:48] VITALS: BP 131/82; PULSE 105; RESP 20; TEMP 36.7; O2SAT 97
--- NOTE | 2019-05-24 19:35 | DI.CT_ITS ---
EXAM: CT ABDOMEN PELVIS W CLINICAL HISTORY: gi bleeding, LLQ pain. TECHNIQUE: COMPARISON: No exams were available for comparison FINDINGS: CT examination of the abdomen and pelvis was performed with bolus infusion of 100 cc of Omnipaque 350 . Images obtained through the lung bases are unremarkable. Liver spleen pancreas adrenals and kidne ys appear normal. No urinary tract calcification or obstruction. Gallbladder and bile ducts are CT normal. No abdominal or pelvic adenopathy. No significant abdominal wall hernia. Appendix is austin l. No evidence of diverticulitis. Question mild wall thickening rectosigmoid colon, this is a questionable finding due to under distens ion. IMPRESSION: Question mild wall thickening recto sigmoid which could be associated with proctitis/colitis. Please correlate clinically.
[2019-05-24 20:02] LABS: INR 1.1 (0.9-1.1); PTT Activated 25.8 sec (21.0-31.4); Prothrombin Time 10.7 sec (9.3-11.0)
[2019-05-24 20:07] LABS: Abs Immature Grans 0.03 k/cumm (0.0-0.09); Absolute Basophil Count 0.04 k/cumm (0.0-0.2); Absolute Lymphocyte Count 1.53 k/cumm (1.2-3.4); Absolute Monocyte Count 0.64 k/cumm (0.11-0.7); Absolute Neutrophil Count 4.75 k/cumm (1.2-6.7); Basophils % 0.6; Eosinophils % 1.4; HCT 43.2 % (40.0-50.0); HGB 15.1 g/dL (13.5-17.5); Immature Grans % 0.4; Lymphocytes % 21.6; Mean Corpuscular Hemoglobin 30.8 pg (27.0-33.0); Mean Platelet Volume 10.9 fL (8.0-11.0); Platelet Count 275 x1000/uL (130-400); RBC 4.91 m/cumm (4.50-6.00); RBC Distribution Width 13.9 % (11.8-14.1); White Blood Cell Count 7.09 k/cumm (4.4-10.8)
[2019-05-24] MEDS: Omnipaque 350 MG/ML 100 ML BTL IJ (20:15)
[2019-05-24] MEDS: Normal Saline 1,000 ML 1000 ML IV (20:28)
[2019-05-24] MEDS: Sucralfate 1 GM TAB PO (20:31)
[2019-05-24] MEDS: Pantoprazole 40 MG VIAL 80 MG IVP (20:31)
[2019-05-24] MEDS: FAMOTIDINE 20 MG/50 ML BAG 100 MG IVPB (20:43)
[2019-05-24 20:44] LABS: ALT 49 U/L (16-63); AST 32 U/L (15-37); Albumin 4.3 g/dL (3.4-5.0); Alkaline Phosphatase 76 U/L (46-116); Anion Gap 13.2 mmol/L (3-11); BUN 9 mg/dL (7-18); Bilirubin, Total 0.6 mg/dL (0.2-1.0); CO2 22.8 mmol/L (21.0-32.0); Calcium 8.8 mg/dL (8.5-10.1); Chloride 106 mmol/L (98-107); Glucose 109 mg/dL (70-100); Lipase 79 U/L (73-393); Sodium 142 mmol/L (136-145); Total Protein 7.8 g/dL (6.4-8.2)
--- NOTE | 2019-05-24 20:52 | DI.VRAD_ITS ---
PROCEDURE INFORMATION: Exam: CT Abdomen And Pelvis With Contrast Exam date and time: 05/24/2019 20:20 Clinical history: 23 years old, male; Vomiting and other: Diarrhea; Abdominal pain; Localized; Left lower quadrant (llq); Prior surgery; Surgery date: 6+ months; Surgery type: Hip surgery; Patient HX: Llq pain, gi bleed, vomiting, diarrhea TECHNIQUE: Imaging protocol: Computed tomography of the abdomen and pelvis with intravenous contrast. Radiation optimization: All CT scans at this facility use at least one of these dose optimization techniques: automated exposure control; mA and/or kV adjustment per patient size (includes targeted exams where dose is matched to clinical indication); or iterative reconstruction. Contrast material: OMNIPAQUE 350; Contrast volume: 100 ml; Contrast route: IV RAC; COMPARISON: CR XR HIPS BILAT W PELVIS 07/29/2018 16:09 FINDINGS: Liver: No mass. Gallbladder and bile ducts: No calcified stones. No ductal dilation. Pancreas: No ductal dilation. No masses. Spleen: No splenomegaly or focal lesions. Adrenals: No mass. Kidneys and ureters: No hydronephrosis. No renal masses. Stomach and bowel: Slight prominence of the rectal wall, slight prominence of the descending colon wall, challenging to characterize given underdistention. No significant paracolic or perirectal edema. No colonic obstruction. No small bowel obstruction or enteritis. No significant diverticular disease is seen. Appendix: No evidence of appendicitis. Intraperitoneal space: No free air. No significant fluid collection. Vasculature: No abdominal aortic aneurysm. Lymph nodes: No significantly enlarged lymph nodes. Bladder: Unremarkable as visualized. Reproductive: Unremarkable as visualized. Bones/joints: Unremarkable. No acute fracture. Soft tissues: No suspicious lesions. IMPRESSION: Question of a minor distal colitis and proctitis, technically challenging to characterize given underdistention, please correlate clinically. No obstruction. Dictated and Authenticated by: Elizabeth Jones MD. Ordering:DEEP Sanders MD
--- NOTE | 2019-05-24 21:07 | ED.GENADUL_ITS ---
Discharge Plan Disposition Patient Disposition: HOME Condition: Good Discharge Details Chief Complaint: GI Bleed Clinical Impression: Acute stomach ulcer, Gastritis, Proctitis Primary Care Provider: Casey Hong ED Provider: Tommy Lowery Home Meds and New Rx's Prescriptions: New amoxicillin-pot clavulanate [Augmentin] 875-125 mg tablet 1 tab PO BID 7 Days Qty: 14 RF: 0 ranitidine HCl [Zantac] 150 MG tablet 150 mg PO BID Qty: 100 RF: 0 pantoprazole [Protonix] 40 mg tablet,delayed release (DR/EC) 40 mg PO DAILY Qty: 30 RF: 0 sucralfate [Carafate] 1 gram tablet 1 gm PO QACHS Qty: 60 RF: 0 No Action hydroxyzine pamoate [Vistaril] 25 MG capsule 50 mg PO QID PRNRF: 0 [id number] 500-325-65 mg Powder In Packet 1 packet PO PRNRF: 0 Discharge Instructions Instructions: Gastritis (ED) Additional Instructions: At this time the CT scan does show a small amount of irritation in your distal colon, by the rectum. Although you have no pain or symptoms there, this may be from a mild infection or it may be from your colon just appearing inflamed because it is under distended. You have been prescribed an antibiotic, I would recommend taking this if you develop any pain in the lower rectal region. In the meantime avoid any spicy foods, tomato-based products, citrus products, or anything that causes irritation to her stomach. Please take the medication as directed. We will schedule follow-up for you with the surgeon for a colonoscopy and EGD, when they contact you please do not miss this call or the appointment. Please stick with a bland diet of mashed potatoes, rice, crackers, milk. If you notice any worsening of your symptoms, or any new symptoms such as vomiting, bloody diarrhea, abdominal pain, vomiting blood, fever, chills, shortness of breath, chest pain, numbness, weakness, or fainting , please return immediately to the emergency department for reevaluation. Please follow up with your primary care provider as soon as possible for reassessment and reevaluation. As always, it was a pleasure participating in your medical care today. Referrals: Casey Hong [Primary Care Provider] - Discharge Data Discharge Date/Time-TO BE ENTERED AT DEPARTURE: 05/24/19 22:02 Medical Decision Making This is a 23-year-old male with past medical history of chronic migraines, as well as a right labral tear requiring minor surgery 6 weeks ago. He presents today for evaluation of GI bleed. He has had a significant amount of NSAIDs and aspirin over the last 6 weeks. He had steroids around 6 weeks ago as well. He had 2 weeks of naproxen and now has been taking 800 mg of aspirin daily spread throughout the day for his chronic headaches and some mild chronic pain. Yesterday he had notable cramping at 3 AM, followed by dark tarry stools. He has notable reflux that he states is been significantly worse over the last 24 hours. Physical exam demonstrates mild tenderness in the left upper quadrant, minimal tenderness in the left mid abdominal quadrant. Rectal exam demonstrates heme positive stool. No gross bleeding, no perirectal tenderness. CT scan was ordered which shows evidence of questionable minor distal colitis and proctitis. She does not seem to correlate well clinically. The read does s uggest that this may be secondary to under distention. The remainder the patient's work-up is notably benign, hemoglobin stable, vital signs notably stable after 1 L bolus of normal saline. No evidence of significant immediate anemia, no evidence of significant elevation in his BUN/creatinine ratio. Signs and symptoms appear clinically inconsistent with a severe life-threatening GI bleed. Patient has had no additional bowel movements here in the ED, he is feeling much better and would like to go home. Because of the questionable CT result finding of mild colitis versus proctitis, we will prescribe Augmentin for home use. This time I feel his symptoms are likely secondary to stomach ulcer from his notable NSAID use. Patient was given Protonix and a PPI here in the ED, he will be given omeprazole and ranitidine for home use, as well as Carafate. He had a long discussion regarding red flags which to return, as well as appropriate dietary modifications. Additionally the patient will be given a referral on outpatient basis for surgical evaluation for EGD and colonoscopy. We discussed red flags for which to return. I have extensively reviewed the treatment plan and discharge instructions with the patient. I have addressed all patient concerns at this time. The patient was made aware of what symptoms to monitor for that would warrant a return to the emergency department. Discussed the plan with the patient, they demonstrate verbal understanding and agreement with our assessment and plan at this time. FINDINGS: Liver: No mass. Gallbladder and bile ducts: No calcified stones. No ductal dilation. Pancreas: No ductal dilation. No masses. Spleen: No splenomegaly or focal lesions. Adrenals: No mass. Kidneys and ureters: No hydronephrosis. No renal masses. Stomach and bowel: Slight prominence of the rectal wall, slight prominence of the descending colon wall, challenging to characterize given underdistention. No significant paracolic or perirectal edema. No colonic obstruction. No small bowel obstruction or enteritis. No significant diverticular disease is seen. Appendix: No evidence of appendicitis. Intraperitoneal space: No free air. No significant fluid collection. Vasculature: No abdominal aortic aneurysm. Lymph nodes: No significantly enlarged lymph nodes. Bladder: Unremarkable as visualized. Reproductive: Unremarkable as visualized. Bones/joints: Unremarkable. No acute fracture. Soft tissues: No suspicious lesions. IMPRESSION: Question of a minor distal colitis and proctitis, technically challenging to characterize given underdistention, please correlate clinically. No obstruction. Dictated and Authenticated by: Elizabeth Jones MD. Ordering:DEEP Sanders MD HPI General Date/Time Provider Initiated Documentation: 05/24/19 19:17 . HPI Narrative: This is a 23-year-old male with a past medical history of chronic migraines as well as a recent right hip surgery 6 weeks ago for mild labral tear, who presents today for evaluation of abdominal cramping, reflux-like symptoms and dark tarry stools and clots. Patient states that since his surgery he was initially on 2 to 3 weeks of naproxen. There was some steroids just prior to his surgery that he did have. Since he finished the naproxen he has been taking Tylenol and aspirin, 400 mg twice daily. Last night the patient had an episodes of notable abdominal cramps at 3 AM which she describes as a pit in his stomach and left upper quadrant, but the subsequent brown diarrhea, however this morning he noticed a fair amount of black tarry stools, as well as some clots noted in his stool. He had notable symptoms of reflux with burning in his stomach and epigastric region as well as burning in the periesophageal region. He has not taken any medication to help with this. He denies any history of GI bleeds. He denies any family history of Crohn's. He has no other complaints at this time. No episodes of vomiting. No other modifying factors. Related Data Home Medications Medication Instructions Recorded Confirmed hydroxyzine pamoate [Vistaril] 50 mg PO QID PRN 12/07/15 05/24/19 amoxicillin-pot clavulanate 1 tab PO BID 7 Days #14 tab 05/24/19 [Augmentin] [id number] 1 packet PO PRN 05/24/19 pantoprazole [Protonix] 40 mg PO DAILY #30 tab 05/24/19 ranitidine HCl [Zantac] 150 mg PO BID #100 tab 05/24/19 sucralfate [Carafate] 1 gm PO QACHS #60 tab 05/24/19 Previous Rx's Medication Instructions Recorded amoxicillin-pot clavulanate 1 tab PO BID 7 Days #14 tab 05/24/19 [Augmentin] pantoprazole [Protonix] 40 mg PO DAILY #30 tab 05/24/19 ranitidine HCl [Zantac] 150 mg PO BID #100 tab 05/24/19 sucralfate [Carafate] 1 gm PO QACHS #60 tab 05/24/19 Allergies Allergy/AdvReac Type Severity Reaction Status Date / Time No Known Allergies Allergy Unverified 05/24/19 18:53 General Stated Complaint: GI Bleed LUCAS: 2 Review of Systems Review of Systems ROS Unobtainable: All systems reviewed & are unremarkable except as noted in HPI and below PFSH Social History Smoking/Tobacco Use Status: Former Tobacco Use Alcohol Intake: current Alcohol Intake frequency: a few times a week Drug use: Daily Substance use type: marijuana Do you feel safe at home: Yes Do you feel safe in your relationship?: Yes Exam Narrative Exam Narrative: 1.Const: Well-nourished, Well-developed, appearing stated age 2.Eyes: PERRL, no conjunctival injection, and symmetrical lids. 3.ENT: Atraumatic external nose and ears. Moist MM. Neck: Symmetric, trachea midline, No thyromegaly. 4.CVS: +S1/S2, No murmurs or gallops. Peripheral pulses 2+ and equal in all extremities. Brisk capillary refill in all extremities. 5.RESP: Unlabored respiratory effort. Clear to auscultation bilaterally. No wheezes rales or rhonchi 6.GI: Soft, Nondistended, No hepatosplenomegaly. No guarding or rebound. Mild left upper quadrant epigastric tenderness. Negative obturator and psoas sign. She no guarding or rebound. Rectal exam was performed with female nurse at bedside, no tenderness on exam, no gross red blood, no parker melena, however there is some melanotic staining. No perirectal tenderness. Hemoccult was positive 7.MSK: Normocephalic/Atraumatic, Extremities w/o deformity or ttp No cyanosis or clubbing, Normal movement of all extremities 8.Skin: Warm, Dry. No rashes or lesions. 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 Sensation grossly intact, no focal neurologic deficits. 10.Psych: (AAO) x3. Appropriate mood and affect Course Vital Signs Vital signs: Vital Signs Temperature 36.7 C 05/24/19 18:48 Pulse 105 H 05/24/19 18:48 Respiratory Rate 20 05/24/19 18:48 Blood Pressure 131/82 05/24/19 18:48 Pulse Oximetry 97 05/24/19 18:48 Temperature 36.7 C 05/24/19 18:48 Temperature Source Skin 05/24/19 18:48 Pulse 105 H 05/24/19 18:48 Respiratory Rate 20 05/24/19 18:48 Respiratory Effort Non-Labored 05/24/19 18:54 Blood Pressure 131/82 05/24/19 18:48 Blood Pressure Position Sitting 05/24/19 18:48 Pulse Oximetry 97 05/24/19 18:48 Oxygen Delivery Method Room Air 05/24/19 18:48 Oxygen Flow Rate 0 05/24/19 18:48 Pain Level 6 05/24/19 19:12 Lab/Test Results Lab/Test Results: Laboratory Tests Range/Units 05/24/19 05/24/19 05/24/19 19:20 19:20 19:20 WBC (4.4-10.8) k/cumm 7.09 RBC (4.50-6.00) m/cumm 4.91 Hgb (13.5-17.5) g/dL 15.1 Hct (40.0-50.0) % 43.2 MCV (80-95) fL 88.0 MCH (27.0-33.0) pg 30.8 MCHC (32.0-36.0) g/dL 35.0 RDW (11.8-14.1) % 13.9 Plt Count (130-400) x1000/uL 275 MPV (8.0-11.0) fL 10.9 Immature Gran % 0.4 Neutrophils % 67.0 Lymphocytes % 21.6 Monocytes % 9.0 Eosinophils % 1.4 Basophils % 0.6 Absolute Neutrophils (1.2-6.7) k/cumm 4.75 Absolute Lymphocytes (1.2-3.4) k/cumm 1.53 Absolute Monocytes (0.11-0.7) k/cumm 0.64 Absolute Eosinophils (0.0-0.7) k/cumm 0.10 Absolute Basophils (0.0-0.2) k/cumm 0.04 PT (9.3-11.0) sec INR (0.9-1.1) APTT (21.0-31.4) sec Sodium (136-145) mmol/L 142 Potassium (3.5-5.1) mmol/L 4.0 Chloride (98-107) mmol/L 106 Carbon Dioxide (21.0-32.0) mmol/L 22.8 Anion Gap (3-11) mmol/L 13.2 H BUN (7-18) mg/dL 9 Creatinine (0.70-1.30) mg/dL 0.90 Estimated GFR/1.73 m2 (mL/min/1.73m2) >= 60.00 Glucose (70-100) mg/dL 109 H Calcium (8.5-10.1) mg/dL 8.8 Total Bilirubin (0.2-1.0) mg/dL 0.6 AST (15-37) U/L 32 ALT (16-63) U/L 49 Alkaline Phosphatase (46-116) U/L 76 Total Protein (6.4-8.2) g/dL 7.8 Albumin (3.4-5.0) g/dL 4.3 Lipase (73-393) U/L 79 Patient ABO/Rh O Positive Antibody Screen Negative Range/Units 05/24/19 19:20 WBC (4.4-10.8) k/cumm RBC (4.50-6.00) m/cumm Hgb (13.5-17.5) g/dL Hct (40.0-50.0) % MCV (80-95) fL MCH (27.0-33.0) pg MCHC (32.0-36.0) g/dL RDW (11.8-14.1) % Plt Count (130-400) x1000/uL MPV (8.0-11.0) fL Immature Gran % Neutrophils % Lymphocytes % Monocytes % Eosinophils % Basophils % Absolute Neutrophils (1.2-6.7) k/cumm Absolute Lymphocytes (1.2-3.4) k/cumm Absolute Monocytes (0.11-0.7) k/cumm Absolute Eosinophils (0.0-0.7) k/cumm Absolute Basophils (0.0-0.2) k/cumm PT (9.3-11.0) sec 10.7 INR (0.9-1.1) 1.1 APTT (21.0-31.4) sec 25.8 Sodium (136-145) mmol/L Potassium (3.5-5.1) mmol/L Chloride (98-107) mmol/L Carbon Dioxide (21.0-32.0) mmol/L Anion Gap (3-11) mmol/L BUN (7-18) mg/dL Creatinine (0.70-1.30) mg/dL Estimated GFR/1.73 m2 (mL/min/1.73m2) Glucose (70-100) mg/dL Calcium (8.5-10.1) mg/dL Total Bilirubin (0.2-1.0) mg/dL AST (15-37) U/L ALT (16-63) U/L Alkaline Phosphatase (46-116) U/L Total Protein (6.4-8.2) g/dL Albumin (3.4-5.0) g/dL Lipase (73-393) U/L Patient ABO/Rh Antibody Screen
[2019-05-24 21:20] VITALS: BP 131/83; PULSE 81; RESP 16; O2SAT 98
--- NOTE | 2019-05-24 21:20 | NUR.NOTE ---
NS infusing. reports abd feeling better, continues to have feeling of pit in stomach.
--- NOTE | 2019-05-24 21:41 | NUR.NOTE ---
Nursing Note: FAXED REFERAL ON 05/24/19
== END 2019-05-24 22:02 | disposition home or self-care (01) ==
PROVIDERS: Emergency Provider Student in an Organized Health Care Education/Training Program; PCP Family Medicine
DX: K25.3 Acute gastric ulcer without hemorrhage or perforation (principal); K29.00 Acute gastritis without bleeding; K62.89 Other specified diseases of anus and rectum
CPT/HCPCS: 36415; 80053; 83690; 86850; 86900; 86901; 96361; 96365; 96375; 99285; 74177; 85025; 85610; 85730; 99284; J3490

== ENCOUNTER 2019-06-03 12:08 | Outpatient (CLI) | payer MEDICAID, SELFPAY ==
[2019-06-03 12:41] LABS: Abs Immature Grans 0.02 k/cumm (0.0-0.09); Absolute Basophil Count 0.03 k/cumm (0.0-0.2); Absolute Eosinophil Count 0.07 k/cumm (0.0-0.7); Absolute Lymphocyte Count 1.52 k/cumm (1.2-3.4); Absolute Neutrophil Count 4.08 k/cumm (1.2-6.7); Basophils % 0.5; Eosinophils % 1.1; HGB 15.6 g/dL (13.5-17.5); Immature Grans % 0.3; Lymphocytes % 24.1; Mean Corp. HGB Concentration 33.2 g/dL (32.0-36.0); Mean Corpuscular Hemoglobin 29.5 pg (27.0-33.0); Mean Corpuscular Volume 88.8 fL (80-95); Mean Platelet Volume 11.2 fL (8.0-11.0); Monocytes % 9.5; Neutrophils % 64.5; Platelet Count 283 x1000/uL (130-400); RBC 5.29 m/cumm (4.50-6.00); White Blood Cell Count 6.32 k/cumm (4.4-10.8)
[2019-06-03 14:32] LABS: C-Reactive Protein 0.17 mg/dL (0.0-0.3); TSH 0.56 uIU/mL (0.36-3.74)
[2019-06-04 23:28] LABS: Saccharomyces cerevisiae IgA <10.0 U; Saccharomyces cervisiae IgG <10.0 U
[2019-06-08 08:37] LABS: IgA 184 mg/dL (85-499); Interpretation SEE COMMENTS; Tissue Transglutaminase IgA <1.2 U/mL (<4.0)
== END 2019-06-03 12:28 ==
PROVIDERS: PCP Family Medicine; Visit Provider Surgery
DX: K92.2 Gastrointestinal hemorrhage, unspecified (principal); R10.9 Unspecified abdominal pain; Z83.79 Family history of other diseases of the digestive system; F17.200 Nicotine dependence, unspecified, uncomplicated; J93.9 Pneumothorax, unspecified
CPT/HCPCS: 36415; 82784; 83516; 84443; 85025; 86140; 86255; 86671

== ENCOUNTER 2019-06-11 10:54 | Day surgery (SDC) | payer MEDICAID, SELFPAY ==
[2019-06-11 11:09] VITALS: BP 127/85; PULSE 79; RESP 18; TEMP 36.4; O2SAT 98
[2019-06-11] MEDS: Lactated Ringers 1,000 ML 100 ML IV (11:30)
--- NOTE | 2019-06-11 13:05 | BOWEL_PTH ---
PATIENT: Vern Jain III LOC: [facility] U#:[id number] AGE/SX: 23/M ROOM: RE06/11/[address]: Estela Chu : 1995 BED: DIS: 06/11/2019 SPEC #: [id number] RECD: 06/11/19 17:20 STATUS: ALBERTO RE #: [id number] WALT: 06/11/19 13:[address]: Estela Chu DEPT: Surgical Specimen RECD BY: Herlinda Stone ENTERED: 06/11/19 17:22 SP TYPE: Bowel OTHR DR: Casey Hong Tissues: 1 - BIOPSY BOWEL 2 - STOMACH BIOPSY 3 - STOMACH BIOPSY 4 - ESOPHAGUS BIOPSY 5 - ESOPHAGUS BIOPSY 6 - BIOPSY BOWEL 7 - BIOPSY BOWEL 8 - BIOPSY BOWEL 9 - BIOPSY BOWEL Procedures: GROSS AND MICRO LEVEL 4 Comments: [id number]
--- NOTE | 2019-06-11 13:35 | W.PM.ENDDOP ---
Date of service: 06/11/19 Time of Service: 13:35 Endoscopy Report DATE OF PROCEDURE: 06/11/19 PRE-OP DIAGNOSIS: GI bleed POST-OP DIAGNOSIS: other (hiatal hernia. sm polyp in rectum- otherwise nl) PROCEDURE: EGD w/ Bx and CE w/ polypectimy and bx SURGEON: Estela Chu ANESTHESIA: GETA ESTIMATED BLOOD LOSS: 2 PATHOLOGY: other COMPLICATIONS: None DISPOSITION: same day PREP: Miralax/Dulcolax PROCEDURE DESCRIPTION: After informed consent was obtained the patient was take to the procedure room and placed in a supine position. Monitors were applied and a time out was done. The patients name, date of , procedure type, allergies to medications and metal in their body was reviewed. A bite block was placed and the patient was sedated. Once sedated and comfortable the gastroscope was advanced through the oropharynx which was grossly normal into the esophagus. The proximal and mid-esophagus were nl. In the distal esophagus there was nl noted. The scope was advanced into the stomach and through the pylorus into the 3rd portion of the duodenum. The duodenum was noted to be nl. Biopsies were done all specimen was retrieved and no bleeding noted. The scope was retracted back into the stomach and biopsies were done to rule out H. pylori. There were no ulcers. The scope was retroflexed. The cardia and fundus were noted to be normal. There a small hiatal hernia noted. The scope was retracted back into the esophagus and biopsies were done of the GE junction to rule out Cifuentes's. The scope is mostly normal. The scope was removed. After informed consent was obtained the patient was taken to the procedure room and placed in a left decubitous position. Monitors were applied and a time out was done. The patients name, date of , procedure, allergies to medications and metal in their body was reviewed. The patient was then sedated. Once sedated and comfortable a rectal exam was done. External exam was normal. Internal exam revealed a normal sphincter tone and no palpable masses. The scope was then introduced and retrofelexed. no internal hemorrhoids were identified. The scope was then advanced to the cecum w/out difficulty. random bx are taken from cecym/transverse/sigmoid colon. The TI and appendiceal orifice were identified. The prep was good. The scope was then slowly retracted over 10 minutes back into the rectum. Minute Polyps were removed from rectum w/ cold biter. The scope was removed and the patient was woken up and taken back to Same day surgery in stable condition. the mucosa was pink and healthy. Random Bx were taken. The patient tolerated the procedure well and there were no immediate complications. Follow up: The patient should follow up at age 50 unless they develop changes in bowel habits or other new gastrointestinal complaints. Follow up: at age 50
--- NOTE | 2019-06-11 13:39 | W.PM.DSUDISC ---
Discharge Plan Disposition Patient Disposition: HOME Condition: Good Discharge Details Reason For Visit: stomach and colon scope Attending Provider: Estela Chu Primary Care Provider: Casey Hong Home Meds and New Rx's Prescriptions: Continued cyclobenzaprine 5 mg tablet 5 mg PO TID PRNRF: 0 hydroxyzine pamoate [Vistaril] 25 MG capsule 50 mg PO QID PRNRF: 0 pantoprazole [Protonix] 40 mg tablet,delayed release (DR/EC) 40 mg PO DAILY Qty: 30 RF: 0 sucralfate [Carafate] 1 gram tablet 1 gm PO QACHS Qty: 60 RF: 0 Discontinued xfinmea-jgicdmzisxoad-apucvzeh 500-325-65 mg Powder In Packet 1 packet PO PRNRF: 0 Discharge Instructions Additional Instructions: Findings: sm. hiatal hernia stomach otherwise nl. cont. protonix for a full 12 wks and than can discontinue. Continue with lifestyle modifications: no alcohol, tobacco products, Aspirin or NSAID's (ibuprofen, Motrin, Naprosyn, aleve, etc), soda pop/any carbonated beverages, caffeine (including tea & chocolate), and acidic foods, (tomatoes, citrus, onions, peppermints) spicy or fried/fatty foods. Do not lie down for 30 minutes after eating, and do not eat 2 hours prior to bedtime. Avoid wearing tight fitting clothing/ belts stop excedrin- if you need to take them, take w/ carafate. Follow up: will send a letter w/ biopsy results in 2-3 wks F/u PCP regarding headaches. Please call if you develop: fevers >101.5 Nausea or Vomiting Abdominal pain that is not transient DAY SURGERY UNIT POST COLONOSCOPY INSTRUCTIONS 1. Because there will be medication in your system for the next 24 hours, you may feel a little sleepy. Your coordination will be affected. Therefore: a. Do not drive or operate dangerous equipment for 24 hours. b. Do not drink alcohol beverages for 24 hours (not even beer). c. Plan to go home and rest for the day. 2. Generally there are no restrictions on your activity after a day or so has gone by, but you may feel a bit fatigued for a few days. 3 After you arrive home you may have a light meal and return to a normal diet as you can tolerate it without feeling sick to your stomach. 4. After surgery, you may feel pain or discomfort. This should be only transient, but if it persists please contact your doctor. 5. If there are any questions regarding the findings of your procedure, please feel free to contact your doctor. 6. If you are unable to contact your doctor with a problem, contact the hospital at [phone]. 7. Continue all your regular medications unless directed otherwise. I understand the above instructions and have no questions. Signature of Patient or Responsible Adult Escort Date/Time Name of Responsible Adult Escort Signature of Nurse Date/Time Activity:: no strenuous acitivty x 24 hrs Diet:: small light meals today Discharge Orders Discharge Orders: Discharge Order (Routine); Ordered 06/11/19 Ordered By: Estela Chu DS: Diagnosis Discharge Diagnosis (1) GI bleed due to NSAIDs: Status: Acute
[2019-06-11 14:14] VITALS: BP 124/83; PULSE 66; RESP 16; TEMP 36.3; O2SAT 100
== END 2019-06-11 14:48 | disposition home or self-care (01) ==
PROVIDERS: PCP Family Medicine; Visit Provider Surgery
PROC: (CPT 45380; principal; 2019-06-11 10:45)
DX: K92.2 Gastrointestinal hemorrhage, unspecified (principal); T39.395A Adverse effect of other nonsteroidal anti-inflammatory drugs [NSAID], initial encounter; K63.5 Polyp of colon; Z83.79 Family history of other diseases of the digestive system; F17.210 Nicotine dependence, cigarettes, uncomplicated; K52.89 Other specified noninfective gastroenteritis and colitis
CPT/HCPCS: 45380; 43239; 88305; J2250; J3010

== ENCOUNTER 2019-08-14 19:28 | Emergency (ER) | payer MEDICAID, SELFPAY ==
[2019-08-14 20:08] VITALS: BP 133/95; PULSE 75; RESP 16; TEMP 37.1; O2SAT 98
--- NOTE | 2019-08-14 21:10 | ED.GENADUL_ITS ---
Discharge Plan Disposition Patient Disposition: HOME Condition: Good Discharge Details Chief Complaint: Cellulitis Clinical Impression: Abscess of left buttock, Tension headache Primary Care Provider: Casey Hong ED Provider: Ulises Hobson [place] Meds and New Rx's Prescriptions: Continued cyclobenzaprine 5 mg tablet 5 mg PO TID PRNRF: 0 hydroxyzine pamoate [Vistaril] 25 MG capsule 50 mg PO QID PRNRF: 0 Discharge Instructions Additional Instructions: No further drainage from the wound even after opening. Capsule is all that is left. Dressing Change in 24 to 36 Hours. Watch for increasing signs of infection including increased pain, swelling, drainage, fevers. Follow-up with primary care next week if wound has not healed up. 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 Referrals: Casey Hong [Primary Care Provider] - Discharge Data Discharge Date/Time-TO BE ENTERED AT DEPARTURE: 08/14/19 22:10 Medical Decision Making Patient with abscess left upper buttock region. He reports previous drainage but it is still painful and firm. He has had abscess drainage in his armpits. Verbally consented to I&D of the buttock region with understanding that we may not get further drainage if it spontaneously opened previously. Please see procedure note. Capsule was incised but there is no further drainage of purulent material just bleeding. No packing was placed. Patient tolerated well. Patient with tension type headache which he has had previously. 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 Patient given Tylenol and Flexeril for the headache. Patient discharged home with wound care instructions. Follow-up with primary care next week if wound not healing. Return to ED for signs of increased infection, neurologic changes, other concerns or problems. HPI General Mode of arrival: ambulatory . Date/Time Provider Initiated Documentation: 08/14/19 21:08 . Limitations to Documentation: no limitations . Information obtained by: patient and RN notes reviewed . HPI Narrative: Patient presents to ED for evaluation of pain and swelling on the left upper buttocks region. Patient reports that started a few days ago. He reports that yesterday it did open and drain. Continues to be painful but no longer draining. Had fever yesterday but not today. Has developed some posterior head and neck pain which she relates to tension headaches which she has history of. He otherwise feels well. Related Data Home Medications Medication Instructions Recorded Confirmed hydroxyzine pamoate [Vistaril] 50 mg PO QID PRN 12/07/15 08/14/19 cyclobenzaprine 5 mg tablet 5 mg PO TID PRN 06/03/19 08/14/19 Allergies Allergy/AdvReac Type Severity Reaction Status Date / Time No Known Allergies Allergy Unverified 08/14/19 20:19 General Stated Complaint: Cellulitis LUCAS: 3 Review of Systems Narrative: As documented in HPI otherwise negative as below. Const: fever; no chills, weakness Resp: no cough, SOB, pleuritic pain CV: no CP, diaphoresis, edema, syncope GI: no abdominal pain, nausea, vomiting, diarrhea Neuro: headache; no numbness, focal weakness, confusion PFSH Medical History Carpal tunnel syndrome Chronic reflux esophagitis (Acute) Congenital pectus carinatum Depression Family history of celiac sprue (Acute) Family history of Crohn's disease (Acute) Femoral acetabular impingement (Acute) GI bleed due to NSAIDs (Acute) Hearing problem Smoker (Acute) Spontaneous pneumothorax right Surgical History History of colonoscopy (Chronic ~06/2019) History of esophagogastroduodenoscopy (EGD) (Chronic ~06/2019) History of hip surgery (Acute) Right hip bone shave Family History (Updated 06/03/19 @ 11:07 by Tayla Lugo RN) Other Celiac disease Crohn's disease Social History Smoking/Tobacco Use Status: Current every day Tobacco Type: cigarettes Alcohol Intake: current Alcohol Intake frequency: a few times a week Alcohol type: beer Drug use: Daily Substance use type: marijuana Current gender identity: male Do you feel safe at home: Yes Do you feel safe in your relationship?: Yes Exam Narrative Exam Narrative: Vitals: Afebrile. Normal vital signs and room air pulse ox. Const: WDWN male in NAD. HEENT: NC/AT. Normal facial exam. Eyes: Normal conjunctiva and sclera. Neck: Supple. Trachea midline. Lungs: Normal respiratory effort. Neuro: A+O x 3. CN grossly in tact. No gross motor or sensory deficit. Normal speech, gait, mentation. Ext: No C/C/E. Skin: Warm and dry. Approximately 1 cm tender, firm, erythematous mass left upper medial buttocks region. No current drainage. Course Vital Signs Vital signs: Vital Signs Temperature 98.8 F 08/14/19 20:08 Pulse 75 08/14/19 20:08 Respiratory Rate 16 08/14/19 20:08 Blood Pressure 133/95 H 08/14/19 20:08 Pulse Oximetry 98 08/14/19 20:08 Temperature 98.8 F 08/14/19 20:08 Temperature Source Skin 08/14/19 20:08 Pulse 75 08/14/19 20:08 Respiratory Rate 16 08/14/19 20:08 Respiratory Effort 08/14/19 20:20 Blood Pressure 133/95 H 08/14/19 20:08 Blood Pressure Position Sitting 08/14/19 20:08 Pulse Oximetry 98 08/14/19 20:08 Oxygen Delivery Method Room Air 08/14/19 20:08 Oxygen Flow Rate 0 08/14/19 20:08 Pain Level 6 08/14/19 20:08 Procedures Abscess I/D Site: Other (buttock ) Side (if applicable): Left Local Anesthetic: Lidocaine 1% and With Epi Amount of anesthesia used (mL): 3 Technique: Incised with #11 Blade Amount of fluid expressed (mL): 0 Irrigation: Yes Packing used?: None
[2019-08-14] MEDS: Cyclobenzaprine 10 MG TAB PO (22:07)
[2019-08-14] MEDS: Acetaminophen 500 MG TAB 1000 MG PO (22:07)
[2019-08-14 22:10] VITALS: BP 124/78; PULSE 78; RESP 18; TEMP 36.7; O2SAT 98
== END 2019-08-14 22:10 | disposition home or self-care (01) ==
PROVIDERS: Emergency Provider Emergency Medicine; PCP Family Medicine
DX: L02.31 Cutaneous abscess of buttock (principal); G44.209 Tension-type headache, unspecified, not intractable
CPT/HCPCS: 10060

== ENCOUNTER 2019-10-14 11:10 | Emergency (ER) | payer MEDICAID, SELFPAY ==
[2019-10-14 11:13] VITALS: BP 148/88; PULSE 82; RESP 14; TEMP 37.2; O2SAT 98
[2019-10-14] MEDS: Tetracaine 0.5% 4 ML BTL (11:36)
[2019-10-14] MEDS: Fluorescein STRIPS 100/BOX 1 MG (11:36)
--- NOTE | 2019-10-14 11:44 | ED.GENADUL_ITS ---
Discharge Plan Disposition Patient Disposition: HOME Condition: Good Discharge Details Chief Complaint: EyeProblem Clinical Impression: Abrasion of cornea, right Primary Care Provider: Casey Hong ED Provider: Tommy Lowery Home Meds and New Rx's Prescriptions: No Action cyclobenzaprine 5 mg tablet 5 mg PO TID PRNRF: 0 hydroxyzine pamoate [Vistaril] 25 MG capsule 50 mg PO QID PRNRF: 0 Discharge Instructions Instructions: Corneal Abrasion (ED) Additional Instructions: You have a small corneal abrasion. Please apply a thin strip of the ointment 3 times a day until your symptoms completely resolve, or for 5 days. If you notice any worsening of your symptoms, or any new symptoms such as from your eye, worsening eye pain, worsening vision changes, vomiting, diarrhea, fever, chills, shortness of breath, chest pain, numbness, weakness, or fainting , please return immediately to the emergency department for reevaluation. Please follow up with your primary care provider as soon as possible for reassessment and reevaluation. As always, it was a pleasure participating in your medical care today. Referrals: Casey Hong [Primary Care Provider] - Medical Decision Making 23-year-old male with a past medical history of celiac sprue and Crohn's disease, femoral acetabular impingement syndrome, who presents today for right eye pain. Tetanus is up-to-date. The patient states he woke up this morning and felt like there is something stuck in his eye at the 7 to 8 o'clock position. He admits to significant tearing but no goopy discharge. He denies any significant visual changes however palpation of the eye and bright lights do make his vision worse. Dark rooms did not worsen his vision. He denies any numbness tingling or weakness. He denies any lightening in his vision, dark curtain coming down, or other changes. He denies any recent trauma, welding, striking of metal with a hammer, or significant exposure to wind or ice yesterday. Patient has no other complaints at this time. He does not use contact lenses. Physical exam demonstrates positive uptake at the 7 o'clock position in his right eye. No evidence of retained foreign body. Pain relieved with topical anesthesia. Patient feels better. Pressures testing demonstrates pressure of 22 in the right eye, no signs of glaucoma. This time I feel that patient can be safely discharged home with diagnosis corneal abrasion. Will give erythromycin ointment for home use. I have extensively reviewed the treatment plan and discharge instructions with the patient. I have addressed all patient concerns at this time. The patient was made aware of what symptoms to monitor for that would warrant a return to the emergency department. Discussed the plan with the patient, they demonstrate verbal understanding and agreement with our assessment and plan at this time. HPI General Date/Time Provider Initiated Documentation: 10/14/19 11:21 . HPI Narrative: 23 -year-old male with a past medical history of celiac sprue and Crohn's disease, femoral acetabular impingement syndrome, who presents today for right eye pain. Tetanus is up-to-date. The patient states he woke up this morning and felt like there is something stuck in his eye at the 7 to 8 o'clock position. He admits to significant tearing but no goopy discharge. He denies any significant visual changes however palpation of the eye and bright lights do make his vision worse. Dark rooms did not worsen his vision. He denies any numbness tingling or weakness. He denies any lightening in his vision, dark curtain coming down, or other changes. He denies any recent trauma, welding, striking of metal with a hammer, or significant exposure to wind or ice yesterday. Patient has no other complaints at this time. He does not use contact lenses. Related Data Home Medications Medication Instructions Recorded Confirmed hydroxyzine pamoate [Vistaril] 50 mg PO QID PRN 12/07/15 10/14/19 cyclobenzaprine 5 mg tablet 5 mg PO TID PRN 06/03/19 10/14/19 Allergies Allergy/AdvReac Type Severity Reaction Status Date / Time No Known Allergies Allergy Unverified 08/14/19 20:19 General Stated Complaint: EyeProblem LUCAS: 4 Review of Systems All systems reviewed & are unremarkable except as noted in HPI and below PFSH Family History (Updated 06/03/19 @ 11:07 by Tayla Lugo RN) Other Celiac disease Crohn's disease Social History Smoking/Tobacco Use Status: Current every day Tobacco Type: cigarettes Alcohol Intake: current Alcohol Intake frequency: a few times a week Alcohol type: beer Drug use: Daily Substance use type: marijuana Current gender identity: male Do you feel safe at home: Yes Do you feel safe in your relationship?: Yes Exam Narrative Exam Narrative: 1.Const: Well-nourished, Well-developed, appearing stated age 2.Eyes: PERRL, no conjunctival injection, and symmetrical lids. Right eye: Eye: EOMI, PERRL, Peripheral vision intact. No nystagmus. Fundoscopic exam shows normal optic discs and normal vasculature. Intraocular pressure in the right eye is 22. No clinical signs of septal/orbital cellulitis, no redness around the eye, no proptosis. No hyphema, no signs of trauma around the eye, no periorbital emphysema. No sluggishness of the pupil. No ophthalmoplegia. No afferent pupillary defect. Fluorescein exam is positive for corneal abrasion with uptake at the 7 o'clock position of the right eye. This corresponds with the patient symptomatology. Negative Ronald sign. Visual acuity as documented in chart. Eversion of upper and lower lids demonstrates no signs of retained foreign body, or eyelash. 3.ENT: Atraumatic external nose and ears. Moist MM. Neck: Symmetric, trachea midline, No thyromegaly. 4.CVS: +S1/S2, No murmurs or gallops. Peripheral pulses 2+ and equal in all extremities. Brisk capillary refill in all extremities. 5.RESP: Unlabored respiratory effort. Clear to auscultation bilaterally. No wheezes rales or rhonchi 6.GI: Soft, Nontender/Nondistended, No hepatosplenomegaly. No guarding or rebound. 7.MSK: Normocephalic/Atraumatic, Extremities w/o deformity or ttp No cyanosis or clubbing, Normal movement of all extremities 8.Skin: Warm, Dry. No rashes or lesions. 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 Sensation grossly intact, no focal neurologic deficits. 10.Psych: (AAO) x3. Appropriate mood and affect Course Vital Signs Vital signs: Vital Signs Temperature 37.2 C 10/14/19 11:13 Pulse 82 10/14/19 11:13 Respiratory Rate 14 10/14/19 11:13 Blood Pressure 148/88 H 10/14/19 11:13 Pulse Oximetry 98 03/04/20 11:13 Temperature 37.2 C 10/14/19 11:13 Temperature Source Tympanic 10/14/19 11:13 Pulse 82 10/14/19 11:13 Respiratory Rate 14 10/14/19 11:13 Respiratory Effort Non-Labored 10/14/19 11:15 Blood Pressure 148/88 H 10/14/19 11:13 Blood Pressure Position Sitting 10/14/19 11:13 Pulse Oximetry 98 10/14/19 11:13 Pain Level 9 10/14/19 11:13
[2019-10-14] MEDS: Erythromycin Ophth Oint 3.5 GM TUBE OD (11:45)
== END 2019-10-14 11:48 | disposition home or self-care (01) ==
PROVIDERS: Emergency Provider Student in an Organized Health Care Education/Training Program; PCP Family Medicine
DX: S05.01XA Injury of conjunctiva and corneal abrasion without foreign body, right eye, initial encounter (principal); X58.XXXA Exposure to other specified factors, initial encounter
CPT/HCPCS: 99283

== ENCOUNTER 2019-10-25 18:46 | Emergency (ER) | payer MEDICAID, SELFPAY ==
[2019-10-25 18:46] VITALS: BP 132/84; PULSE 72; RESP 18; TEMP 36.8; O2SAT 99
--- NOTE | 2019-10-25 18:56 | W.ED.GENAD ---
Discharge Plan Disposition Patient Disposition: HOME Condition: Stable Discharge Details Chief Complaint: Headache Clinical Impression: Headache Primary Care Provider: Casey Hong ED Provider: Rakel Heller Home Meds and New Rx's Prescriptions: New ondansetron HCl [Zofran] 4 mg tablet 4 mg PO Q8H PRN (Reason: nausea and vomiting) Qty: 7 RF: 0 autfihwnyz-ofipbqzhtrbno-wmtf 50-325-40 mg capsule 1 cap PO Q6H PRN (Reason: pain) Qty: 10 RF: 0 Continued hydroxyzine pamoate [Vistaril] 25 MG capsule 50 mg PO QID PRNRF: 0 Discharge Instructions Instructions: General Headache (ED) Additional Instructions: Follow up with primary care provider in 3-5 days. Return to ED sooner if any worsening or concerns. Increase oral fluids. Please take Ibuprofen with food every 4-6 hours as needed for pain. Do not take any extra Tylenol with prescribed medication. You were put on a list to follow-up with neurology, they will review your chart and call you for follow-up appointment. Referrals: Casey Hong [Primary Care Provider] - Medical Decision Making 23-year-old male presents with posterior occipital head pressure which radiates around to his frontal scalp which began at 3 AM this morning. Associated with nausea vomiting, photosensitivity and sensitivity to sound. Patient states he does have a history of tension headaches but no history of migraines. He denies any recent head trauma denies fever. Denies any weakness numbness tingling in his extremities. Upon initial exam he is alert and oriented no facial droop, cranial nerves II through XII are intact, no nuchal rigidity. He reports taking Tylenol prior to arrival which did little for his pain. Initial work-up includes normal saline 1 L, Zofran, Toradol, Benadryl IV push. Head CT ordered due to negative history of migraine headaches, abrupt onset of pain and to rule out pathophysiology. COMPARISON: CT HEAD WITHOUT CONTRAST 10/12/2016 2:06 AM FINDINGS: Brain: Normal. No hemorrhage. Unremarkable white matter. No mass effect. Ventricles: Normal. No ventriculomegaly. Bones/joints: Unremarkable. No acute fracture. Sinuses: Visualized sinuses are unremarkable. No fluid levels. Mastoid air cells: Visualized mastoid air cells are well aerated. Soft tissues: Unremarkable. IMPRESSION: No acute intracranial abnormality. Stable exam since previous study dated 10/12/2016. Thank you for allowing us to participate in the care of your patient. Dictated and Authenticated by: Emiliano Finch MD 10/25/2019 7:31 PM Eastern Time ([place] & [place]) Differential diagnosis includes migraine, tension headache, sinusitis, meningitis, mass, SAH, sinus thrombosis, or hemorrhage. 1936: Discussed initial CT results with patient and reevaluation he reports that he feels a lot better after medication administration. He is gotten approximately 500 cc normal saline at this time. Discussed possibility of doing an LP which patient is declined at this time. He states that he has had 1 in the past for previous headache and he ended up having a spinal headache and that required a blood patch and they did not find anything at that time. Discussed the risks versus benefits., Verbalizes understanding. At this time he has the mental capacity to make appropriate decisions. Plan is to discharge patient home. HPI General Mode of arrival: EMS. Date/Time Provider Initiated Documentation: 10/25/19 18:55. Limitations to Documentation: no limitations. Information obtained by: patient. HPI Narrative: 23-year-old male presents with posterior occipital head pressure which radiates around to his frontal scalp which began at 3 AM this morning. Associated with nausea vomiting, photosensitivity and sensitivity to sound. Patient states he does have a history of tension headaches but no history of migraines. He denies any recent head trauma denies fever. Denies any weakness numbness tingling in his extremities. Upon initial exam he is alert and oriented no facial droop, cranial nerves II through XII are intact, no nuchal rigidity. He reports taking Tylenol prior to arrival which did little for his pain. Related Data Home Medications Medication Instructions Recorded Confirmed hydroxyzine pamoate [Vistaril] 50 mg PO QID PRN 12/07/15 10/25/19 qmkygccrar-erdzxmddcqdnh-zahe 1 cap PO Q6H PRN #10 cap 10/25/19 ondansetron HCl [Zofran] 4 mg PO Q8H PRN #7 tab 10/25/19 Previous Rx's Medication Instructions Recorded vqlyoepkdq-bknwaciclzdeh-ezjp 1 cap PO Q6H PRN #10 cap 10/25/19 ondansetron HCl [Zofran] 4 mg PO Q8H PRN #7 tab 10/25/19 Allergies Allergy/AdvReac Type Severity Reaction Status Date / Time No Known Allergies Allergy Unverified 08/14/19 20:19 General Stated Complaint: Headache LUCAS: 2 Review of Systems Narrative: Constitutional: Negative for weight loss, alert and oriented, well groomed, normal body habitus, appears uncomfortable. HEENT: Denies trauma, blurry vision, nasal discharge, sore throat, trouble swallowing. Chest: Denies chest pain, palpitations, irregular rhythm, hypertension. Respiratory: Denies Shortness of breath, cough, hemoptysis. GI: Denies abdominal pain, diarrhea, constipation. Positive nausea with emesis x140 minutes prior to arrival. : Denies dysuria, hematuria, flank pain, rectal bleeding. Neuro: Denies dizziness, blurry vision, weakness, syncope, or facial numbness. Positive headache Hematologic: Denies easy bruising, intolerance to heat or cold, hair loss. [facility] Medical History Carpal tunnel syndrome Chronic reflux esophagitis (Acute) Congenital pectus carinatum Depression Family history of celiac sprue (Acute) Family history of Crohn's disease (Acute) Femoral acetabular impingement (Acute) GI bleed due to NSAIDs (Acute) Hearing problem Smoker (Acute) Spontaneous pneumothorax right Surgical History History of colonoscopy (Chronic ~06/2019) History of esophagogastroduodenoscopy (EGD) (Chronic ~06/2019) History of hip surgery (Acute) Right hip bone shave Family History Other Celiac disease Crohn's disease Social History Smoking/Tobacco Use Status: Current every day Tobacco Type: cigarettes Alcohol Intake: current Alcohol Intake frequency: a few times a week Alcohol type: beer Drug use: Daily Substance use type: marijuana Current gender identity: male Do you feel safe at home: Yes Do you feel safe in your relationship?: Yes Exam Narrative Exam Narrative: Constitutional: Allert and oriented x3. Appears stated age. Normal body habitus. Head: Normocephalic, no trauma. Eyes: Pupils PERRLA, Red reflex noted, EOM's intact. Eyelids symmetrical withour lesions, discharge, or swelling. No nystagmus. ENT: Bilateral TM's WNL, External ear normal to inspection, no mastoid TTP, swelling, or erythema, Nasal turbinates WNL, no nasal discharge. Normal dentition, Posterior pharynx WNL, no exudate. Neck: Neck is supple no nuchal rigidity. Chest: RRR, Normal S1, S2, distal pulses intact. Resp: Lungs clear to auscultation bilaterally, no wheezes, rales, or rhonchi. Musculoskeletal: Normal gait, 5/5 strength to all four extremities. Skin: No suspicious rashes or lesions. Capillary refill ?2 sec. Neurologic: Cranial nerves II-XII intact. Alert and oriented x 3. DTR's intact. Hematologic/Lymphatic: No ecchymosis, no lymphadenopathy. Course Vital Signs Vital signs: Vital Signs Temperature 36.8 C 10/25/19 18:46 Pulse 72 10/25/19 18:46 Respiratory Rate 18 10/25/19 18:46 Blood Pressure 132/84 10/25/19 18:46 Pulse Oximetry 99 10/25/19 18:46 Temperature 36.8 C 10/25/19 18:46 Temperature Source Oral 10/25/19 18:46 Pulse 72 10/25/19 18:46 Respiratory Rate 18 10/25/19 18:46 Respiratory Effort Non-Labored 10/25/19 18:50 Blood Pressure 132/84 10/25/19 18:46 Blood Pressure Position Sitting 10/25/19 18:46 Pulse Oximetry 99 10/25/19 18:46 Oxygen Delivery Method Room Air 10/25/19 18:46 Oxygen Flow Rate 0 10/25/19 18:46 Pain Level 10 10/25/19 18:46
[2019-10-25] MEDS: diphenhydrAMINE 50 MG/ML VIAL 25 MG IVP (19:06)
[2019-10-25] MEDS: Ondansetron 4 MG/2 ML VIAL IVP (19:06)
[2019-10-25] MEDS: Ketorolac 30 MG/ML VIAL IVP (19:06)
[2019-10-25] MEDS: Normal Saline 1,000 ML 1000 ML IV (19:07)
--- NOTE | 2019-10-25 19:20 | DI.CT_ITS ---
EXAM: CT HEAD WO CLINICAL HISTORY: Headache. TECHNIQUE: Imaging Protocol: Axial computed tomography images with coronal and sagittal reformatted images were created and reviewed COMPARISON: HEAD WITHOUT CONTRAST from 10/12/2016 FINDINGS: Ventricles and Extra axial spaces: Normal in size and morphology for the patient's age. Hemorrhage: None. Cerebral parenchyma: Normal. Midline shift: None. Brainstem/Cerebellum: Normal. Calvarium: Normal. Visualized Paranasal sinuses/Mastoids: Clear. Soft Tissues: Unremarkable. IMPRESSION: Normal CT of the head. RADIATION DOSE DELIVERED: DATA REPOSITORY: All CT scans at this facility are submitted to the National Radiology Data Registry (NRDR) Dose Index Registry (DIR) with the [employer] (A[employer]). RADIATION OPTIMIZATION: All CT scans at this facility use at least one of these dose optimization te chniques: automated exposure control; mA and/or kV adjustment per patient size (includes targeted exa ms where dose is matched to clinical indication); or iterative reconstruction.
--- NOTE | 2019-10-25 19:32 | DI.VRAD_ITS ---
PROCEDURE INFORMATION: Exam: CT Head Without Contrast Exam date and time: 10/25/2019 6:56 PM Age: 23 years old Clinical indication: Pain; Headache not specified; Patient HX: Headache, no known trauma TECHNIQUE: Imaging protocol: Computed tomography of the head without contrast. Radiation optimization: All CT scans at this facility use at least one of these dose optimization techniques: automated exposure control; mA and/or kV adjustment per patient size (includes targeted exams where dose is matched to clinical indication); or iterative reconstruction. COMPARISON: CT HEAD WITHOUT CONTRAST 10/12/2016 2:06 AM FINDINGS: Brain: Normal. No hemorrhage. Unremarkable white matter. No mass effect. Ventricles: Normal. No ventriculomegaly. Bones/joints: Unremarkable. No acute fracture. Sinuses: Visualized sinuses are unremarkable. No fluid levels. Mastoid air cells: Visualized mastoid air cells are well aerated. Soft tissues: Unremarkable. IMPRESSION: No acute intracranial abnormality. Stable exam since previous study dated 10/12/2016. Dictated and Authenticated by: Emiliano Finch MD. Ordering:JOZEF Ellington MD
--- NOTE | 2019-10-25 20:06 | NUR.NOTE ---
Nursing Note: faxed referal to [facility] on 10/25/2019
== END 2019-10-25 20:35 | disposition home or self-care (01) ==
LOC: ER 20:41
PROVIDERS: Emergency Provider Registered Nurse Emergency; PCP Family Medicine
DX: R51 Headache (principal); R11.2 Nausea with vomiting, unspecified; Z53.29 Procedure and treatment not carried out because of patient's decision for other reasons
CPT/HCPCS: 96361; 96374; 96375; 99284; 70450; J1200; J1885; J2405

== ENCOUNTER 2019-12-26 14:08 | Emergency (ER) | payer MEDICAID, SELFPAY ==
[2019-12-26 14:19] VITALS: BP 137/97; PULSE 84; RESP 16; TEMP 36.7; O2SAT 98
[2019-12-26] MEDS: Ketorolac 60 MG/2 ML VIAL IM (14:47)
--- NOTE | 2019-12-26 14:51 | W.ED.GENAD ---
Discharge Plan Disposition Patient Disposition: HOME Condition: Stable Discharge Details Chief Complaint: Orthopedic Clinical Impression: Chronic hip pain Primary Care Provider: Casey Hong ED Provider: Franklin Shook Home Meds and New Rx's Prescriptions: No Action hydroxyzine pamoate [Vistaril] 25 MG capsule 50 mg PO QID PRNRF: 0 ondansetron HCl [Zofran] 4 mg tablet 4 mg PO Q8H PRN (Reason: nausea and vomiting) Qty: 7 RF: 0 Discharge Instructions Instructions: Hip Pain (ED) Additional Instructions: At this time you were given an injection of Toradol. I recommend lycz-dey-cqjzdqb Tylenol as directed. Cool and/or warm compresses every 2 hours for 20 minutes. Use crutches as needed, advance activity as tolerated. Please watch for new or worsening symptoms and return to the ER for any concerns. I would like you to reach out to your orthopedic team in [facility] on Saturday to make them aware of your visit here in the ER and see if they would like to evaluate you sooner than January 13 as already scheduled Medical Decision Making Patient with history of femoral acetabular impingement syndrome presents for exacerbation of pain that occurred yesterday while moving a large piece of furniture. He is otherwise asymptomatic. Denies any abdominal pain, back pain, pain rating to his testicles or penis. Denies numbness, tingling, weakness. Cannot take oral NSAIDs and does not want to take oral steroids. We discussed our options, he is comfortable 60 IM Toradol. He will continue taking cpdq-tmb-puahfjn Tylenol, using his crutches, cool and/or warm compresses every 2 hours for 20 minutes. He was encouraged to return to the ER for new or worsening symptoms otherwise contact his orthopedic team on Saturday in [facility] for prompt outpatient reevaluation. Patient has no additional questions or concerns upon discharge. Medical Records Medical records reviewed: Yes I reviewed the patient's medical records. HPI General Mode of arrival: ambulatory. Date/Time Provider Initiated Documentation: 12/26/19 14:14. Limitations to Documentation: no limitations. Information obtained by: patient. HPI Narrative: This is a 24-year-old gentleman with a femoral acetabular impingement, had surgery on his right hip last year, scheduled for surgery on January 13 in [facility] on his left hip. He reports yesterday he was moving a heavy piece of furniture, pushing with his legs, and now has increased pain in his left leg. He does already use crutches, took Tylenol, smokes marijuana, not helping with his discomfort. He cannot take oral NSAIDs because a history of a GI bleed. Would rather not take steroids as this could change his scheduled procedure. He is looking for some sort of analgesia. He reports the pain does shoot down from his groin and left hip into his upper leg, denies numbness, tingling, weakness. The pain does not radiate into his testicles, penis, scrotum. Patient reports this feels like his chronic pain just worse. He denies fever or rash. Related Data Home Medications Medication Instructions Recorded Confirmed hydroxyzine pamoate [Vistaril] 50 mg PO QID PRN 12/07/15 12/26/19 ondansetron HCl [Zofran] 4 mg PO Q8H PRN #7 tab 10/25/19 12/26/19 Previous Rx's Medication Instructions Recorded ondansetron HCl [Zofran] 4 mg PO Q8H PRN #7 tab 10/25/19 Allergies Allergy/AdvReac Type Severity Reaction Status Date / Time No Known Allergies Allergy Unverified 12/26/19 14:22 General Stated Complaint: Orthopedic LUCAS: 4 Review of Systems Constitutional Constitutional: Denies fever(s) and Denies weakness Cardiovascular Cardiovascular: Denies chest pain and Denies dyspnea Respiratory Respiratory: Denies dyspnea Gastrointestinal Gastrointestinal: Denies nausea Genitourinary Genitourinary: Denies dysuria Musculoskeletal Musculoskeletal: Denies back pain, Denies numbness and Denies tingling Integumentary/Breasts Skin/Breast: Denies rash Neurologic Neurologic: Denies numbness, Denies tingling and Denies weakness [facility] Medical History Carpal tunnel syndrome Chronic reflux esophagitis (Acute) Congenital pectus carinatum Depression Family history of celiac sprue (Acute) Family history of Crohn's disease (Acute) Femoral acetabular impingement (Acute) GI bleed due to NSAIDs (Acute) Hearing problem Smoker (Acute) Spontaneous pneumothorax right Surgical History History of colonoscopy (Chronic ~06/2019) History of esophagogastroduodenoscopy (EGD) (Chronic ~06/2019) History of hip surgery (Acute) Right hip bone shave Family History Other Celiac disease Crohn's disease Social History Smoking/Tobacco Use Status: Current every day Tobacco Type: cigarettes Alcohol Intake: current Alcohol Intake frequency: a few times a week Alcohol type: beer Drug use: Daily Substance use type: marijuana Current gender identity: male Do you feel safe at home: Yes Do you feel safe in your relationship?: Yes Exam Const General: cooperative, healthy appearing, comfortable and no acute distress Orientation: alert and awake HENMT Head: normal to inspection, normocephalic and atraumatic Mouth: moist mucous membranes Eyes Conjunctivae: conjunctivae normal Neck Neck: normal visual inspection, trachea midline and supple Resp Effort & Inspection: normal respiratory effort and able to speak in complete sentences Cardio Rate: regular rate Rhythm: regular rhythm Skin General skin exam: no rashes or lesions noted Neuro General: patient alert, patient awake, moves all extremities and no focal motor deficits Sensory Exam: no sensory deficits noted Extrem General: no pedal edema and no calf tenderness Left lower extremity: normal to inspection, normal capillary refill, no joint enlargement and hip/thigh Details: normal to inspection, tenderness Location: of the hip Location: anteriorly and abnormal ROM (Baseline limited external rotation); no swelling and no ecchymosis Psych Appearance: grossly normal Mental Status: mental status grossly normal Course Vital Signs Vital signs: Vital Signs Temperature 36.7 C 12/26/19 14:19 Pulse 84 12/26/19 14:19 Respiratory Rate 16 12/26/19 14:19 Blood Pressure 137/97 H 12/26/19 14:19 Pulse Oximetry 98 12/26/19 14:19 Temperature 36.7 C 12/26/19 14:19 Temperature Source Tympanic 12/26/19 14:19 Pulse 84 12/26/19 14:19 Respiratory Rate 16 12/26/19 14:19 Respiratory Effort Non-Labored 12/26/19 14:21 Blood Pressure 137/97 H 12/26/19 14:19 Blood Pressure Position Sitting 12/26/19 14:19 Pulse Oximetry 98 12/26/19 14:19 Oxygen Delivery Method Room Air 12/26/19 14:19 Oxygen Flow Rate 0 12/26/19 14:19 Pain Level 9 12/26/19 14:47
== END 2019-12-26 14:59 | disposition home or self-care (01) ==
PROVIDERS: Emergency Provider Physician Assistant; PCP Family Medicine
DX: M25.552 Pain in left hip (principal); X50.9XXA Other and unspecified overexertion or strenuous movements or postures, initial encounter; M25.852 Other specified joint disorders, left hip
CPT/HCPCS: 96372; 99284; J1885

== ENCOUNTER 2019-12-30 15:36 | Emergency (ER) | payer MEDICAID, SELFPAY ==
[2019-12-30 15:43] VITALS: BP 132/94; PULSE 88; RESP 14; TEMP 37.1; O2SAT 97
--- NOTE | 2019-12-30 16:23 | ED.GENADUL_ITS ---
Discharge Plan Disposition Patient Disposition: HOME Condition: Stable Discharge Details Chief Complaint: Orthopedic Clinical Impression: Shoulder pain, Ganglion cyst Primary Care Provider: Casey Hong ED Provider: Franklin Shook Home Meds and New Rx's Prescriptions: No Action hydroxyzine pamoate [Vistaril] 25 MG capsule 50 mg PO QID PRNRF: 0 Discharge Instructions Instructions: Ganglion Cysts (ED), Shoulder Pain (ED) Additional Instructions: [id number] medications as directed for symptomatic control. Wear sling as needed, advance activity as tolerated. Be sure to do passive range of motion at least 4 times daily to avoid a frozen shoulder. Please watch for new or worsening symptoms and return to the ER for any concerns. I will give you the name and number of our local orthopedic team so you may reach out to them tomorrow. If symptoms persist you may require removal of the cyst. Outpatient physical therapy and/or advanced imaging may be indicated for your shoulder pain. Referrals: Nic Wen MD [ [facility] STAFF PHYSICIAN] - Medical Decision Making 24-year-old gentleman reporting a cyst to his left hand and shoulder pain that began yesterday upon waking. He appears well, nontoxic. His cyst appears to be a left hand ganglion cyst, neuro, vascular, tendon intact. Nothing to do from an emergency room standpoint, will refer to orthopedics. As far as the shoulder is concerned it appears to be musculoskeletal in nature. It is reproducible and worse with movement. We discussed options. Patient is concerned of pneumothorax although clinically he does not appear to have a pneumothorax. He would prefer an x-ray of his chest. X-ray of the chest obtained and unremarkable. Discussed findings with patient. Discussed treatment options. Will provide sling, discussed the importance of passive range of motion, cool and/or warm compresses, and [id number] medications for symptomatic control. He appears well, nontoxic in no acute distress. He is requesting an injection of Toradol. He was actually in the ER 4 days ago requesting the same. I explained to him that I did not feel comfortable continuing to provide him with IM Toradol for musculoskeletal complaints. I have no baseline reference of his renal function and there is currently no indication to obtain laboratory values simply to give Toradol today. Patient is agreeable and understands. Will provide orthopedic follow-up for his shoulder discomfort as well. Outpatient physical therapy and/or MRI may be indicated if symptoms persist. Medical Records Medical records reviewed: Yes I reviewed the patient's medical records. Imaging Data Radiologic Study: Attestation: I personally reviewed and interpreted this imaging study as follows: Imaging: X-Ray My impression: Chest x-ray read by me as negative. Confirmed by virtual radiology HPI General Mode of arrival: ambulatory . Date/Time Provider Initiated Documentation: 12/30/19 15:38 . Limitations to Documentation: no limitations . Information obtained by: patient . HPI Narrative: This is a 24-year-old gentleman with a history of chronic hip pain, spontaneous pneumothorax, current smoker, presenting to the ER for 2 separate complaints. He is right-hand dominant, noticed a cyst on his left hand this morning which is causing mild discomfort. He reports occasionally he feels as though he has tingling in his thumb but no true numbness or weakness. Patient also reports left shoulder pain that began yesterday, no obvious trauma. He reports the pain is worse with m ovement. He denies radiation down his arm. He denies any obvious injury or trauma. He states he woke up like this and perhaps slept in an awkward position. Patient specifically request an injection of Toradol. He was actually here 4 days ago for chronic hip pain and requested the same. He also brings up concern of pneumothorax as he had a spontaneous pneumothorax in the past. He tells me this does not feel the same, denies any chest pain or shortness of breath. Related Data Home Medications Medication Instructions Recorded Confirmed hydroxyzine pamoate [Vistaril] 50 mg PO QID PRN 12/07/15 12/30/19 Allergies Allergy/AdvReac Type Severity Reaction Status Date / Time No Known Allergies Allergy Unverified 12/26/19 14:22 General Stated Complaint: Orthopedic LCUAS: 3 Review of Systems Constitutional Constitutional: Denies fever(s) and Denies weakness Cardiovascular Cardiovascular: Denies chest pain and Denies dyspnea Respiratory Respiratory: Denies cough and Denies dyspnea Gastrointestinal Gastrointestinal: Denies abdominal pain, Denies nausea and Denies vomiting Musculoskeletal Musculoskeletal: Reports back pain, Denies numbness and Reports tingling Integumentary/Breasts Skin/Breast: Denies rash Neurologic Neurologic: Denies numbness, Reports tingling and Denies weakness [facility] Medical History Carpal tunnel syndrome Chronic reflux esophagitis (Acute) Congenital pectus carinatum Depression Family history of celiac sprue (Acute) Family history of Crohn's disease (Acute) Femoral acetabular impingement (Acute) GI bleed due to NSAIDs (Acute) Hearing problem Smoker (Acute) Spontaneous pneumothorax right Surgical History History of colonoscopy (Chronic ~06/2019) History of esophagogastroduodenoscopy (EGD) (Chronic ~06/2019) History of hip surgery (Acute) Right hip bone shave Family History Other Celiac disease Crohn's disease Social History Smoking/Tobacco Use Status: Current every day Tobacco Type: cigarettes Alcohol Intake: current Alcohol Intake frequency: a few times a week Alcohol type: beer Drug use: Daily Substance use type: marijuana Current gender identity: male Do you feel safe at home: Yes Do you feel safe in your relationship?: Yes Exam Const General: cooperative, healthy appearing, comfortable and no acute distress Orientation: alert, awake and oriented x3 HENMT Head: normal to inspection, normocephalic and atraumatic Mouth: moist mucous membranes Eyes Conjunctivae: conjunctivae normal Neck Neck: normal visual inspection, full ROM, no meningeal signs, trachea midline, supple and nontender Resp Effort & Inspection: normal respiratory effort and able to speak in complete sentences Auscultation: clear to auscultation bilaterally Cardio Rate: regular rate Rhythm: regular rhythm Back/Spine/Pelvis Back: no CVA tenderness and back tenderness (Diffusely across the left scapula) Skin General skin exam: no rashes or lesions noted Neuro General: patient alert, patient awake, patient oriented x3, moves all extremities and no focal motor deficits Motor: muscle tone normal throughout and strength 5/5 throughout Sensory Exam: no sensory deficits noted Extrem Left upper extremity: shoulder/upper arm Details: inspection abnormal, tenderness (Diffuse superior and posterior aspect), axillary nerve sensory function normal and abnormal ROM (Patient will not lift above 90 degrees as he reports increased pain); no swelling Hand/finger images: 1. What appears to be a pea-sized ganglion cyst with minimal tenderness. There is no erythema, fluctuation, pointing abscess. Neuro, vascular, tendon intact Psych Appearance: grossly normal Mental Status: mental status grossly normal Course Vital Signs Vital signs: Vital Signs Temperature 37.1 C 12/30/19 15:43 Pulse 88 12/30/19 15:43 Respiratory Rate 14 12/30/19 15:43 Blood Pressure 132/94 H 12/30/19 15:43 Pulse Oximetry 97 12/30/19 15:43 Temperature 37.1 C 12/30/19 15:43 Temperature Source Skin 12/30/19 15:43 Pulse 88 12/30/19 15:43 Respiratory Rate 14 12/30/19 15:43 Respiratory Effort 12/30/19 15:49 Blood Pressure 132/94 H 12/30/19 15:43 Blood Pressure Position Sitting 12/30/19 15:43 Pulse Oximetry 97 12/30/19 15:43 Oxygen Delivery Method Room Air 12/30/19 15:43 Oxygen Flow Rate 0 12/30/19 15:43 Pain Level 8 12/30/19 15:43
--- NOTE | 2019-12-30 16:40 | DI.RAD_ITS ---
EXAM: XR CHEST 2V PA LATERAL CLINICAL HISTORY: Left shoulder pain, history of pneumothorax TECHNIQUE: 2D digital imaging was performed. COMPARISON: CR CHEST 2 VIEWS PA,LAT from 07/16/2014 CR CHEST 2 VIEWS PA,LAT from 04/09/2016 FINDINGS: MEDIASTINUM: Normal. HEART: Normal. PULMONARY VASCULATURE: Normal. LUNGS: Clear. PLEURAL SPACE: No pleural effusion or pneumothorax. BONE:Normal. OTHER FINDINGS:Normal. IMPRESSION: No acute pulmonary findings. DATA REPOSITORY: RADIATION DOSE DELIVERED:
--- NOTE | 2019-12-30 17:02 | DI.VRAD_ITS ---
PROCEDURE INFORMATION: Exam: XR Chest, 2 Views Exam date and time: 12/30/2019 4:42 PM Age: 24 years old Clinical indication: Right-sided chest pain; Patient HX: Right sided chest and shoulder pain, HX of pneumothorax. TECHNIQUE: Imaging protocol: XR of the chest Views: 2 views. COMPARISON: CR CHEST 2 VIEWS PA,LAT 04/09/2016 10:08 PM FINDINGS: Lungs: Unremarkable. No consolidation. Pleural space: Unremarkable. No pleural effusion. No pneumothorax. Heart/Mediastinum: Unremarkable. No cardiomegaly. Bones/joints: No acute findings. IMPRESSION: No acute findings. Dictated and Authenticated by: René Sanchez MD. Ordering:LONNIE Reid MD
== END 2019-12-30 17:23 | disposition home or self-care (01) ==
PROVIDERS: Emergency Provider Physician Assistant; PCP Family Medicine
DX: M25.512 Pain in left shoulder (principal); M67.432 Ganglion, left wrist; F17.210 Nicotine dependence, cigarettes, uncomplicated; R05 Cough
CPT/HCPCS: 99283; 71046; L3650

== ENCOUNTER 2020-05-30 20:17 | Emergency (ER) | payer MEDICAID, SELFPAY ==
[2020-05-30 20:23] VITALS: BP 134/86; PULSE 72; RESP 16; TEMP 36.7; O2SAT 98
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
--- NOTE | 2020-05-30 20:43 | NUR.NOTE ---
Nursing Note:referal sent to ent 05/30/20
== END 2020-05-30 20:55 | disposition home or self-care (01) ==
LOC: ER 20:51
PROVIDERS: Emergency Provider Emergency Medicine; PCP Family Medicine
DX: R04.0 Epistaxis (principal); J34.2 Deviated nasal septum; X58.XXXA Exposure to other specified factors, initial encounter
CPT/HCPCS: 99282; 99283

== ENCOUNTER 2021-01-09 13:38 | Emergency (ER) | payer MEDICAID, SELFPAY ==
[2021-01-09 13:47] VITALS: BP 111/81; PULSE 78; RESP 18; TEMP 36.7; O2SAT 97
--- NOTE | 2021-01-09 14:02 | W.ED.GENAD ---
Discharge Plan Disposition Patient Disposition: HOME Condition: Good Discharge Details Clinical Impression: Tick bite Primary Care Provider: Casey Hong ED Provider: Saima Contreras Home Meds and New Rx's Prescriptions: Continued acetaminophen 325 mg Tablet 650 mg PO ONCE PRN (Reason: Pain) RF: 0 Discharge Instructions Instructions: Tick Bite (ED) Additional Instructions: Tick was removed today. Please monitor area of bite for redness, warmth, drainage, increased pain, fever/chills. If you develop these other new/worsening symptoms please seek care urgently once again. Otherwise, this was consistent with a dog tick and is not 1 or transmit Lyme or other tickborne illnesses. Please follow-up with primary care for reevaluation in 2 weeks. Referrals: Casey Hong [Primary Care Provider] - Discharge Data Discharge Date/Time-TO BE ENTERED AT DEPARTURE: 01/09/21 14:16 Medical Decision Making Patient is a pleasant 25-year-old male presenting today with chief complaint of tick on the back of his head. States that he first noticed a bump back there about a week ago. No fevers or chills. On exam, patient is alive taking that on the posterior aspect of his scalp near the crown. No surrounding erythema, warmth, drainage. Tick is not engorged. This is a dog tick. Discussed these findings with the patient. Tick was easily removed by myself. I advised that antibiotics are not warranted for prophylaxis at this time. However, we did discuss the risks associated with potential infection from the wound itself and what to watch for. All the concerns were addressed and he is in agreement this plan HPI General Mode of arrival: ambulatory. Date/Time Provider Initiated Documentation: 01/09/21 14:01. Limitations to Documentation: no limitations. Information obtained by: patient and RN notes reviewed. History of Present Illness 25 year old M presents to the emergency department with the chief complaint of tick on scalp, described as moderate, with intensity rated at 4. Quality is described as aching, and is localized to the head. Patient reports no radiation. Patient started experiencing this day(s) and it has been constant. No relieving factors improve symptom(s), No exacerbating factors reported . Patient notes no other symptoms.; denies fever/chills. Patient did receive the following treatments prior to arrival, none Related Data Home Medications Medication Instructions Recorded Confirmed acetaminophen 650 mg PO ONCE PRN 10/19/20 05/31/21 Allergies Allergy/AdvReac Type Severity Reaction Status Date / Time No Known Allergies Allergy Unverified 01/09/21 13:52 General Stated Complaint: RashLesion LUCAS: 4 Review of Systems Constitutional Constitutional: Reports as per HPI, Denies chills and Denies fever(s) Musculoskeletal Musculoskeletal: Reports as per HPI and Denies tingling Integumentary/Breasts Skin/Breast: Reports as per HPI Neurologic Neurologic: Denies sensory deficit and Denies tingling [facility] Medical History (Updated 01/09/21 @ 14:09 by SYL Montelongo) Carpal tunnel syndrome Chronic reflux esophagitis Congenital pectus carinatum Depression Family history of celiac sprue Family history of Crohn's disease Femoral acetabular impingement GI bleed due to NSAIDs Hearing problem Smoker Spontaneous pneumothorax right Surgical History History of colonoscopy (~06/2019) History of esophagogastroduodenoscopy (EGD) (~06/2019) History of hip surgery Right hip bone shave Family History Other Celiac disease Crohn's disease Social History Smoking/Tobacco Use Status: Current every day Tobacco Type: cigarettes Smoking risk assessment performed?: Yes Alcohol Intake: current Alcohol Intake frequency: a few times a week Alcohol type: beer Drug use: Daily Substance use type: marijuana Current gender identity: male Do you feel safe at home: Yes Do you feel safe in your relationship?: Yes Exam Const General: cooperative, healthy appearing, comfortable, no acute distress and well developed Nutritional Appearance: average body habitus and well nourished Orientation: alert and awake [facility] Head images: 1. area of tick. No surrounding erythema, warmth, drainage, swelling. Non-engorged dog tick at this area. Resp Effort & Inspection: normal respiratory effort, able to speak in complete sentences and no respiratory distress Cardio Rate: regular rate Rhythm: regular rhythm Skin General skin exam: other (tick) Neuro General: patient alert and patient awake Cognition: normal cognition Speech: speech normal Gait: normal gait Motor: muscle tone normal throughout Psych Appearance: grossly normal and well kempt Mental Status: mental status grossly normal Speech and Movement: speech and movement normal Course Vital Signs Vital signs: Vital Signs Temperature 36.7 C 01/09/21 13:47 Pulse 78 01/09/21 13:47 Respiratory Rate 18 01/09/21 13:47 Blood Pressure 111/81 01/09/21 13:47 Pulse Oximetry 97 01/09/21 13:47 Temperature 36.7 C 01/09/21 13:47 Temperature Source Temporal Artery Scan 01/09/21 13:47 Pulse 78 01/09/21 13:47 Respiratory Rate 18 01/09/21 13:47 Respiratory Effort Non-Labored 01/09/21 13:51 Blood Pressure 111/81 01/09/21 13:47 Blood Pressure Position Sitting 01/09/21 13:47 Pulse Oximetry 97 01/09/21 13:47 Oxygen Delivery Method Room Air 01/09/21 13:47 Oxygen Flow Rate 0 01/09/21 13:47 Pain Level 4 01/09/21 13:47
== END 2021-01-09 14:16 | disposition home or self-care (01) ==
PROVIDERS: Emergency Provider Physician Assistant; PCP Family Medicine
DX: S00.06XA Insect bite (nonvenomous) of scalp, initial encounter (principal); W57.XXXA Bitten or stung by nonvenomous insect and other nonvenomous arthropods, initial encounter
CPT/HCPCS: 99281

== ENCOUNTER 2022-06-19 10:20 | Emergency (ER) | payer MEDICAID, SELFPAY ==
[2022-06-19 10:25] VITALS: BP 118/68; PULSE 90; RESP 18; TEMP 36.9; O2SAT 97
--- NOTE | 2022-06-19 11:16 | ED.GENADUL_ITS ---
Discharge Plan Disposition Patient Disposition: HOME Condition: Stable Discharge Details Clinical Impression: Abscess Primary Care Provider: Casey Hong ED Provider: Herlinda Zamudio Home Meds and New Rx's Prescriptions: New cephalexin 500 mg capsule 500 mg PO Q6H 7 Days Qty: 28 0RF Continued acetaminophen 325 mg Tablet 650 mg PO ONCE PRN (Reason: Pain) Discharge Instructions Instructions: Abscess (ED) Additional Instructions: Warm compresses at least 2-3 times daily for 5 to 10 minutes of time Antibiotic until completed Decrease use and elevate your hand as much as possible Please return should you have new, worsening, or persistent complaints Referrals: Casey Hong [Primary Care Provider] - Discharge Data Discharge Date/Time-TO BE ENTERED AT DEPARTURE: 06/19/22 11:34 Medical Decision Making Placed on Keflex Dressing, recheck in 48 hours recommended Obvious evidence of foreign body in the suspicion given mechanism Return precautions discussed and patient expressed understanding Medical Records Medical records reviewed: Yes I reviewed the patient's medical records. HPI General Date/Time Provider Initiated Documentation: 06/19/22 10:28 . HPI Narrative: This 26-year-old male who is otherwise reportedly healthy presents with small cut on left hand a month ago. He states it is persistently swollen and tender. He states tetanus is up-to-date. He presents today secondary to swelling and redness to the affected area. He denies any risk of foreign body. Denies any strength or sensation change. Related Data Home Medications Medication Instructions Recorded Confirmed acetaminophen 325 mg tablet 650 mg PO ONCE PRN Pain 05/30/20 06/19/22 cephalexin 500 mg capsule 500 mg PO Q6H 7 days #28 caps 06/19/22 Previous Rx's Medication Instructions Recorded cephalexin 500 mg capsule 500 mg PO Q6H 7 days #28 caps 06/19/22 Allergies Allergy/AdvReac Type Severity Reaction Status Date / Time No Known Allergies Allergy Unverified 01/09/21 13:52 General Stated Complaint: Cellulitis LUCAS: 4 Review of Systems Narrative: Review systems obtained x3 and negative aside from medication HPI PFSH All Active Problems Tick bite (Acute) Abscess (Acute) Nasal turbinate hypertrophy (Acute) Nasal obstruction (Acute) Frequent nosebleeds (Acute) Deviated nasal septum (Acute) Pneumothorax on right (Acute 07/12/14) History of hip surgery (Acute) Right hip bone shave Abnormal CT scan, sigmoid colon (Acute) Abdominal pain (Acute) GI bleed due to NSAIDs (Acute) Family history of celiac sprue (Acute) Family history of Crohn's disease (Acute) Smoker (Acute) Medical History (Updated 06/19/22 @ 11:20 by SYL Gilliland) Carpal tunnel syndrome Chronic reflux esophagitis Congenital pectus carinatum Depression Femoral acetabular impingement Hearing problem Spontaneous pneumothorax right Surgical History History of colonoscopy (~06/2019) History of esophagogastroduodenoscopy (EGD) (~06/2019) Family History Other Celiac disease Crohn's disease Social History Smoking/Tobacco Use Status: Current every day Tobacco Type: cigarettes Smoking risk assessment performed?: Yes Alcohol Intake: current Alcohol Intake frequency: a few times a week Alcohol type: beer Drug use: Daily Substance use type: marijuana Current gender identity: male Do you feel safe at home: Yes Do you feel safe in your relationship?: Yes Exam Const General: cooperative Extrem Hand/finger images: 1. Possible area of fluctuance, possible pyoderma granuloma some, no evidence of foreign body, mild overlying erythema Course Vital Signs Vital signs: Vital Signs Temperature 36.9 C 06/19/22 10:25 Pulse 90 06/19/22 10:25 Respiratory Rate 18 06/19/22 10:25 Blood Pressure 118/68 06/19/22 10:25 Pulse Oximetry 97 06/19/22 10:25 Temperature 36.9 C 06/19/22 10:25 Temperature Source Tympanic 06/19/22 10:25 Pulse 90 06/19/22 10:25 Respiratory Rate 18 06/19/22 10:25 Respiratory Effort Non-Labored 06/19/22 10:27 Blood Pressure 118/68 06/19/22 10:25 Blood Pressure Position Sitting 06/19/22 10:25 Pulse Oximetry 97 06/19/22 10:25 Oxygen Delivery Method Room Air 06/19/22 10:25 Oxygen Flow Rate 0 06/19/22 10:25 Pain Level 4 06/19/22 10:25 Procedures Abscess I/D Site: Hand Side (if applicable): Left Local Anesthetic: Lidocaine 1% Amount of anesthesia used (mL): 2 Technique: Needle Aspiration Irrigation: Yes Packing used?: None
== END 2022-06-19 11:34 | disposition home or self-care (01) ==
PROVIDERS: Emergency Provider Physician Assistant; PCP Family Medicine
DX: L02.512 Cutaneous abscess of left hand (principal)
CPT/HCPCS: 10060